=== PATIENT | male | born 1985 | race Asian ===

== ENCOUNTER 2019-04-22 16:09 | Inpatient (IN) | payer OTHER ==
--- NOTE | 2019-04-22 16:29 | PDOC ---
Attending Attestation - Resident Resident Name: Daya Valadez - HPI HPI: 04/22/19 17:26 Pt presents to the ED complaining of a two day history of generalized malaise, diffuse body aches and fevers. Patient is here in the ED from [facility] and has a history of urethral strictures for which he self dilates. Three days ago, patient had difficulty urinating and dilated himself. The next day, he began experiencing fevers and body aches, accompanied by dysuria. - Physicial Exam PE: 04/22/19 17:31 Agree with resident exam. Patient is alert and oriented and appears uncomfortable. CV: rrr tachycardic. RR: lungs CTA b/l. Abdomen: soft, non tender, non distended without guarding or rebound. + bilateral CVA tenderness. 04/22/19 18:12 - Critical Care Time Total Critical Care Time: 30 Critical Care Statement: The care of this patient involved high complexity decision making to prevent further life threatening deterioration of the patient 's condition and/or to evaluate & treat vital organ system(s) failure or risk of failure. - Medical Decision Making 04/22/19 18:15 Ptp resents to the ED complaining of fever and generalized body aches. Found to be febrile and hypotensive in the ED. Labs show elevated lactate, ARF and elevated bilirubin. wIll start broad spectrum antibiotics and admit to ICU for sepsis with multiorgan system failure. Will check CXR and CT abdomen pelvis without contrast to evaluate for urinary obstruction and biliary obstruction. Troponin is 0.3, likely secondary to demand. 04/22/19 18:24
[2019-04-22 16:40] VITALS: BMI 26.6
[2019-04-22] MEDS ORDERED: SODIUM CHLORIDE 2,381 ML IV ONE (16:43)
[2019-04-22] MEDS ORDERED: ONDANSETRON 4 MG/2 ML VIAL IVPB ONE (16:45)
[2019-04-22] MEDS ORDERED: ACETAMINOPHEN 1000 MG/100 ML VIAL (NON FORMULARY) IVPB ONE (16:45)
[2019-04-22] MEDS ORDERED: ONDANSETRON 4 MG/2 ML VIAL ONE (16:56)
[2019-04-22] MEDS ORDERED: ACETAMINOPHEN INJECTION 100 ML IVPB ONE (16:56)
[2019-04-22 17:31] LABS: VENOUS PC02 43.1 mmHg (38-52); VENOUS PH 7.35 (7.31-7.41)
[2019-04-22 17:32] LABS: BASO % 0.1 % (0-2.0); EOS % 0.1 % (0-4.5); HEMATOCRIT 42.3 % (35.4-49); LYMPH % 4.4 % (8-40); MCH 29.4 pg (25.7-33.7); MCHC 33.1 g/dl (32.0-35.9); MEAN PLT VOLUME 10.6 fl (7.5-11.1); MONO % 4.5 % (3.8-10.2); NEUT % 90.9 % (42.8-82.8); PLATELET COUNT 74 K/MM3 (134-434); RBC 4.75 M/mm3 (4.00-5.60); RDW 14.5 % (11.9-15.9); WHITE BLOOD COUNT 14.6 K/mm3 (4.0-10.0)
[2019-04-22 17:36] LABS: VENOUS PO2 < 49 mmHg (28-48)
[2019-04-22 17:39] LABS: HYALINE CASTS 3 /lpf (0-8); URINE APPEARANCE CLOUDY; URINE BACTERIA 4356.8 /hpf (NEGATIVE); URINE BILIRUBIN 1+ (NEGATIVE); URINE COLOR DK YELLOW; URINE GLUCOSE (UA) NEGATIVE (NEGATIVE); URINE KETONE NEGATIVE (NEGATIVE); URINE LEUK ESTERASE 2+ (NEGATIVE); URINE NITRITE NEGATIVE (NEGATIVE); URINE PROTEIN 1+ (NEGATIVE); URINE RBC 6 /hpf (0-4); URINE UROBILINOGEN 0.2 mg/dL (0.2-1.0); URINE WBC 42 /hpf (0-5)
[2019-04-22 17:49] LABS: INR 2.07 (0.83-1.09); PROTHROMBIN TIME (PATIENT) 24.6 SEC (9.7-13.0)
[2019-04-22 18:00] LABS: ALBUMIN 3.4 g/dl (3.4-5.0); BILIRUBIN,TOTAL 8.5 mg/dL (0.2-1); BLOOD UREA NITROGEN 52.3 mg/dL (7-18); CALCIUM 8.3 mg/dL (8.5-10.1); CREATININE 2.8 mg/dL (0.55-1.3); POTASSIUM 4.3 mmol/L (3.5-5.1); TOT PROT 6.7 g/dl (6.4-8.2)
[2019-04-22 18:07] LABS: YEAST POSITIVE (NEGATIVE)
[2019-04-22] MEDS ORDERED: CEFTRIAXONE 1 GM in DEXTROSE 5%-WATER - 100 ML IVPB ONE (18:08)
[2019-04-22] MEDS ORDERED: PIPERACILLIN/TAZOB 3.375 GM 3.375 GM in DEXTROSE 5%-WATER - 50 ML IVPB ONE (18:12)
[2019-04-22] MEDS ORDERED: SODIUM CHLORIDE 1,000 ML IV STA (18:12)
[2019-04-22] MEDS ORDERED: VANCOMYCIN 1 GM in D5W (PRE-DOCKED) 1,000 MG/250 ML IVPB ONE (18:12)
--- NOTE | 2019-04-22 18:16 | PDOC ---
History of Present Illness - General Chief Complaint: Weakness Stated Complaint: Blood Pressure Problem Time Seen by Provider: 04/22/19 16:25 History Source: Patient Exam Limitations: No Limitations - History of Present Illness Initial Comments: 04/22/19 18:15 33y M with PMH of Hepatitis B (not on treatment) urethral strictures (straight catheterizes when needed) presenting to ED for body aches, weakness. Patient states that Friday night he was taking a shower and felt weak. He had trouble urinating and dilated his urethra and developed hematuria which has lessened today. Patient states that yesterday he developed fever and chills, he took medications which he got from back home (azithromycin, paracetamol) which his doctor gave him for UTIs. Today patient was having generalized body aches which prompted him to go to urgent care today and was found to be hypotensive. Patient is endorsing generalized body and muscle aches and nausea. Denies abdominal pain, v/d, urinary symptoms. PMD: none PMH: see hpi PSH: none Meds: Allergies: nkda Social: occasional alcohol use Past History - Past Medical History Allergies/Adverse Reactions: Allergies Allergy/AdvReac Type Severity Reaction Status Date / Time No Known Allergies Allergy Verified 04/22/19 16:38 Home Medications: Ambulatory Orders Azithromycin [Zithromax] 500 mg PO ONCE 04/22/19 COPD: No Other medical history: urinary stricture - Psycho Social/Smoking Cessation Hx Smoking History: Never smoked Review of Systems - Review of Systems Constitutional: Yes: Chills, Fever, Malaise, Weakness HEENTM: No: Symptoms Reported Respiratory: No: Cough, Shortness of Breath Cardiac (ROS): No: Chest Pain, Lightheadedness, Palpitations, Syncope ABD/GI: Yes: Nausea. No: Constipated, Diarrhea, Rectal Bleeding, Vomiting, Abdominal cramping, Tarry Stools : Yes: See HPI, Hematuria. No: Burning, Dysuria, Flank Pain Musculoskeletal: Yes: Back Pain, Joint Pain, Muscle Pain, Neck Pain Integumentary: No: Erythema, Rash Neurological: No: Symptoms reported *Physical Exam - Vital Signs Last Vital Signs Temp Pulse Resp BP Pulse Ox 99.0 F 82 16 106/78 94 L 04/22/19 18:08 04/22/19 18:08 04/22/19 18:08 04/22/19 18:08 04/22/19 18:08 - Physical Exam General Appearance: Yes: Other (diaphoretic, ill appearing) HEENT: positive: EOMI, MILI, Scleral Icterus (R), Scleral Icterus (L), Other ( dry membranes) Neck: positive: Trachea midline, Supple. negative: Decreased range of motion, Lymphadenopathy (R), Lymphadenopathy (L), Rigidity Respiratory/Chest: positive: Lungs Clear, Normal Breath Sounds. negative: Crackles, Rales, Rhonchi, Stridor, Wheezing Cardiovascular: positive: S1, S2, Tachycardia. negative: Edema, JVD, Murmur Vascular Pulses: Carotid (R): 2+, Carotid (L): 2+, Dorsalis-Pedis (R): 2+, Doralis-Pedis (L): 2+ Gastrointestinal/Abdominal: positive: Normal Bowel Sounds, Soft. negative: Tender, Guarding, Rebound Male Genitalia: positive: other (urethral meatus is disrupted to the glans). negative: testicular tenderness, testicular mass Musculoskeletal: positive: Other (negative kernig, negative brudzinsky. + quadricep tenderness. Knee joint tenderness). negative: CVA Tenderness, Vertebral Tenderness Extremity: positive: Normal Capillary Refill. negative: Coldness, Cyanosis, Pedal Edema, Swelling, Erythema Integumentary: positive: Normal Color, Dry, Warm. negative: Erythema, Petechiae , Swelling, Ecchymosis Neurologic: positive: medical secretary receptionist II-XII NML intact, Fully Oriented, Alert, Normal Mood/ Affect, Normal Response, Motor Strength 5/5 Procedures - Central Line Central Line Lumen: triple Central Line Position: internal jugular (L) Anesthesia: 1% Lidocaine Amount of anesthesia (ccs): 3 Complications: none Post Central Line Insertion: sutured, good blood return, position confirmed w/ CXR Progress: 04/23/19 00:02 triple lumen central line placed using sterile technique and ultrasound guidance. landmarks identified with ultrasound. wheal formed with lidocaine with no blood with pull back. needle inserted with venous blood return. wire introduced, unable to advance. wire was pulled back, needle placement confirmed with ultrasound, angle dropped , wire inserted with no resistance. dilator introduced. catheter was then introduced and hubbed. sutured in place. confirmed by xray. . supervised by Dr. Ali ED Treatment Course - LABORATORY CBC & Chemistry Diagram: 04/22/19 17:00 04/22/19 17:00 - ADDITIONAL ORDERS Additional order review: Laboratory Results 04/22/19 04/22/19 04/22/19 17:27 17:00 17:00 PT with INR INR PTT (Actin FS) VBG pH 7.35 POC VBG pCO2 43.1 POC VBG pO2 < 49 H VBG HCO3 23.3 VBG O2 Sat (Randi) 38.4 L VBG Base Excess -1.8 Sodium Potassium Chloride Carbon Dioxide Anion Gap BUN Creatinine Est GFR (CKD-EPI)AfAm Est GFR (CKD-EPI)NonAf Random Glucose Lactic Acid 2.9 H* Calcium Total Bilirubin AST ALT Alkaline Phosphatase Creatine Kinase Troponin I Total Protein Albumin Urine Color Dk yellow Urine Appearance Cloudy Urine pH 5.0 Ur Specific [place] 1.013 Urine Protein 1+ H Urine Glucose (UA) Negative Urine Ketones Negative Urine Blood 2+ H Urine Nitrite Negative Urine Bilirubin 1+ H Urine Urobilinogen 0.2 Ur Leukocyte Esterase 2+ H Urine WBC (Auto) 42 Urine RBC (Auto) 6 Urine Casts (Auto) 3 U Epithel Cells (Auto) 1.0 Urine Bacteria (Auto) 4356.8 Urine Yeast (Auto) Positive 04/22/19 04/22/19 04/22/19 17:00 17:00 17:00 PT with INR 24.60 H INR 2.07 H PTT (Actin FS) 43.0 H VBG pH POC VBG pCO2 POC VBG pO2 VBG HCO3 VBG O2 Sat (Randi) VBG Base Excess Sodium 132 L Potassium 4.3 Chloride 100 Carbon Dioxide 23 Anion Gap 9 BUN 52.3 H Creatinine 2.8 H Est GFR (CKD-EPI)AfAm 32.40 Est GFR (CKD-EPI)NonAf 27.96 Random Glucose 110 H Lactic Acid Calcium 8.3 L Total Bilirubin 8.5 H AST 73 H ALT 77 H Alkaline Phosphatase 78 Creatine Kinase 220 Troponin I 0.30 H Total Protein 6.7 Albumin 3.4 Urine Color Urine Appearance Urine pH Ur Specific [place] Urine Protein Urine Glucose (UA) Urine Ketones Urine Blood Urine Nitrite Urine Bilirubin Urine Urobilinogen Ur Leukocyte Esterase Urine WBC (Auto) Urine RBC (Auto) Urine Casts (Auto) U Epithel Cells (Auto) Urine Bacteria (Auto) Urine Yeast (Auto) 04/22/19 17:00 RBC 4.75 MCV 89.0 MCHC 33.1 RDW 14.5 MPV 10.6 Neutrophils % 90.9 H Lymphocytes % 4.4 L Monocytes % 4.5 Eosinophils % 0.1 Basophils % 0.1 - RADIOLOGY Radiology Studies Ordered: Category Date Time Status ABDOMEN & PELVIS CT W/O CONTR [CT] Stat CT Scan 04/22/19 18:12 Ordered CHEST X-RAY PORTABLE* [RAD] Stat Radiology 04/22/19 16:43 Taken - Medications Given in the ED: ED Medications Discontinued Medications Generic Name Dose Route Start Last Admin Trade Name Freq PRN Reason Stop Dose Admin Acetaminophen 1,000 mg 04/22/19 16:45 04/22/19 17:07 Ofirmev Injection - IVPB 04/22/19 16:46 1,000 mg ONCE ONE Administration Ondansetron HCl 4 mg 04/22/19 16:45 04/22/19 17:07 Zofran Injection IVPB 04/22/19 16:46 4 mg ONCE ONE Administration Medical Decision Making - Medical Decision Making 04/23/19 00:02 33y M with PMH of urethral strictures, Hepatitis B presenting to ED from urgent care for hypotension. pt endoress feeling weak 2d ago, febrile yesterday and generalized body aches today. vitals: hypotensive, tahcycaric febrile ddx includes but not limited to sepsis v. severe sepsis v. septic shock (uti, pyelo, pna). low suspicion for meningitis/encephalitis. Low suspicion for malaria, dengue or other mosquito borne illness given pt has been healthy until now. low suspicion for TB (no respiratory symptoms). sepsis w/u. 1L NS by EMS, will order 30mg/kg fluids. ofirmev. pt improving bp after fluids however still hypotensive, 3rd L hanging. stating he feels ok. rigors noted in patient, also diaphoretic. provided warm blankets. labs significant for leukocytosis with L shift, elevated coags, elevated LFTs, Cr 2.8, elevated trop likely 2/2 demand, Tbili elevated. Lactic acid over 2. elevated lfts could be due to shock v. underlying liver disease. howver given elevated trop and Cr (uknown baseline) in setting of hypotension, abnormalities can be explained by septic shock. ekg: sinus tachycardia. J point elevation in lead 1, aVL. no reciprocal depressions, normal intervals. CXR does not show infiltrates CT scan ordered. UA positive for infection; likely source due to instrumentation. -Francoise Solomon 04/23/19 00:46 CT scan shows hepatic surface irregularity could be due to cirrhosis. small R heaptic lobe calcification. pt remains hypotensive. Central line placed. see procedure note. Lact 5. LR ordered by ICU, will repeat lact. Line confirmed by xray, started pressors (levophed 5) accepted by ICU, admitted to hospitalist. RR in the 30s, patient states he cortes not feel short of breath and does not have chest pain. no arrhythmias signifying catheter in R [facility]. Discharge - Discharge Information Problems reviewed: Yes Clinical Impression/Diagnosis: JEFF (acute kidney injury) Sepsis Qualifiers: Sepsis type: sepsis due to unspecified organism Sepsis acute organ dysfunction status: with acute organ dysfunction Severe sepsis acute organ dysfunction type : acute renal failure Acute renal failure type: unspecified Severe sepsis shock status: with septic shock Qualified Code(s): A41.9 - Sepsis, unspecified organism; R65.21 - Severe sepsis with septic shock; N17.9 - Acute kidney failure , unspecified UTI (urinary tract infection) Qualifiers: Urinary tract infection type: site unspecified Hematuria presence: with hematuria Qualified Code(s): N39.0 - Urinary tract infection, site not specified ; R31.9 - Hematuria, unspecified - Follow up/Referral - Patient Discharge Instructions - Post Discharge Activity
[2019-04-22] MEDS ORDERED: CEFTRIAXONE 1 GM/50 ML BAG ONE (18:19)
[2019-04-22] MEDS ORDERED: PIPERACILLIN/TAZOB 3.375 GM 3.375 GM/50 ML BAG IVPB ONE (18:44)
[2019-04-22] MEDS ORDERED: VANCOMYCIN 1 GRAM (PRE-DOCKED) 1,000 MG/250 ML BAG IVPB ONE (18:44)
--- NOTE | 2019-04-22 19:22 | PN ---
Teaching Attending Note Name of Resident: Kenton Grullon ATTENDING PHYSICIAN STATEMENT I saw and evaluated the patient. I reviewed the resident's note and discussed the case with the resident. I agree with the resident's findings and plan as documented. SUBJECTIVE: Patient is a 33 year old man with PMH of urethral strictures (self dilates)and chronic hepatitis B infection presenting to ER for body aches, weakness. Patient states that Friday night he was taking a shower and felt weak. He had trouble urinating and dilated his urethra and developed hematuria which has lessened today. Patient states that yesterday he developed fever and chills, he took medications which he got from back home in [facility] (azithromycin, paracetamol) which his doctor gave him for UTIs. Today patient was having generalized body aches which prompted him to go to urgent care today and was found to be hypotensive. Patient is has generalized body and muscle aches and nausea. Denies abdominal pain, vomiting, diarrhea, or SOB. Does not smoke, abuse alcohol or use illicit drugs. No obvious sick contacts. Just arrived from [facility] a few days ago. OBJECTIVE: Alert Vital Signs Period Temp Pulse Resp BP Sys/Paez Pulse Ox Last 24 Hr 98.7 F-103.4 F 82-102 16-18 82-106/49-78 94-100 HEENT: No Jaundice, eye redness or discharge, PERRLA, EOMI. Normocephalic, atraumatic. External ears are normal and hearing is grossly intact. No nasal discharge. Neck: Supple, nontender. No palpable adenopathy or thyromegaly. No JVD Chest: Good effort. Clear to auscultation and percussion. Heart: Regular. No S3, rub or murmur Abdomen: Not distended, soft, RUQ tender and bilateral CVAT; suprapubic tenderness; no HSM. No rebound or guarding. Normal bowel sounds. Ext: Peripheral pulses intact. No leg edema. Skin: Warm and dry. No petechiae, rash or ecchymosis. Neuro: Alert. Oriented x3. CN 2-12 grossly intact. Sensation grossly intact in all four extremities and DTR are symmetric. Psych: Appropriate mood and affect. Good insight. Abnormal Lab Results 04/22/19 04/22/19 04/22/19 17:00 17:00 17:00 WBC 14.6 H Plt Count 74 L Absolute Neuts (auto) 13.3 H Neutrophils % 90.9 H Lymphocytes % 4.4 L PT with INR 24.60 H INR 2.07 H PTT (Actin FS) 43.0 H POC VBG pO2 VBG O2 Sat (Randi) Sodium 132 L BUN 52.3 H Creatinine 2.8 H Random Glucose 110 H Lactic Acid Calcium 8.3 L Total Bilirubin 8.5 H AST 73 H ALT 77 H CK-MB (CK-2) Troponin I Urine Protein Urine Blood Urine Bilirubin Ur Leukocyte Esterase 04/22/19 04/22/19 04/22/19 17:00 17:00 17:00 WBC Plt Count Absolute Neuts (auto) Neutrophils % Lymphocytes % PT with INR INR PTT (Actin FS) POC VBG pO2 < 49 H VBG O2 Sat (Randi) 38.4 L Sodium BUN Creatinine Random Glucose Lactic Acid 2.9 H* Calcium Total Bilirubin AST ALT CK-MB (CK-2) 4.3 H Troponin I 0.30 H Urine Protein Urine Blood Urine Bilirubin Ur Leukocyte Esterase 04/22/19 17:27 WBC Plt Count Absolute Neuts (auto) Neutrophils % Lymphocytes % PT with INR INR PTT (Actin FS) POC VBG pO2 VBG O2 Sat (Randi) Sodium BUN Creatinine Random Glucose Lactic Acid Calcium Total Bilirubin AST ALT CK-MB (CK-2) Troponin I Urine Protein 1+ H Urine Blood 2+ H Urine Bilirubin 1+ H Ur Leukocyte Esterase 2+ H ASSESSMENT AND PLAN: 1. Septic shock due to Pyelonephritis - Sepsis workup done and patient being treated with IV Zosyn and Linezolid. Will use levophed for pressor support, continue IV NS and trend lactic acid in the ICU. Add Diflucan IV in view yeast in the urine. CT abdomen/pelvis shows cirrhosis, enlarged spleen and distended urinary bladder. Elevated LFTs and low platelets may signal chronic liver disease. Will get RUQ sonogram in view of bilirubin of 8.5. Will get hepatitis serology, trend LFTs, get NH3 level and send test for tick-borne illnesses ( babesiosis, malaria, etc) as well as infections like Leptospirosis that cause hepato-renal injury. No acute abnormality on CXR. Elevated troponin may be due to demand ischemia, but will trend troponin to rule out ACS. EKG shows NSR with LAE and no significant ST-T wave changes. Get ECHO. Will continue comprehensive care for all of patients comorbid conditions. Consult Urology, GI and ID 2. CKD/JEFF? - Likely related to urinary outlet obstruction. Will consult nephrology and avoid nephrotoxic agents such as NSAIDS, aminoglycosides, contrast dyes and certain Alternative medicine products. 3. DVT prophylaxis - Heparin 5000u sq tid. 4. Advance directives - Full code
[2019-04-22] MEDS ORDERED: LACTATED RINGERS SOLUTION 1,000 ML/1,000 ML INFUS.BAG IV SCH (21:00)
[2019-04-22] MEDS ORDERED: NOREPINEPHRINE BITARTRATE 4,000 MCG in DEXTROSE 5%-WATER - 496 ML IV SCH (21:00)
--- NOTE | 2019-04-22 21:22 | CONSULT ---
Consultation: REQUESTING PROVIDER: Dr. Valadez CONSULT REQUEST: We have been asked to medically evaluate this patient for fluid resistant hypotension. HISTORY OF PRESENT ILLNESS: 33 y/o M with PMH ?Chronic Hep B who presented to the ED for hematuria REVIEW OF SYSTEMS: CONSTITUTIONAL: Absent: fever, chills, diaphoresis, generalized weakness, malaise, loss of appetite, weight change HEENT: Absent: rhinorrhea, nasal congestion, throat pain, throat swelling, difficulty swallowing, mouth swelling, ear pain, eye pain, visual changes CARDIOVASCULAR: Absent: chest pain, syncope, palpitations, irregular heart rate, lightheadedness , peripheral edema RESPIRATORY: Absent: cough, shortness of breath, dyspnea with exertion, orthopnea, wheezing, stridor, hemoptysis GASTROINTESTINAL: Absent: abdominal pain, abdominal distension, nausea, vomiting, diarrhea, constipation, melena, hematochezia GENITOURINARY: Absent: dysuria, frequency, urgency, hesitancy, hematuria, flank pain, genital pain MUSCULOSKELETAL: Absent: myalgia, arthralgia, joint swelling, back pain, neck pain SKIN: Absent: rash, itching, pallor HEMATOLOGIC/IMMUNOLOGIC: Absent: easy bleeding, easy bruising, lymphadenopathy, frequent infections ENDOCRINE: Absent: unexplained weight gain, unexplained weight loss, heat intolerance, cold intolerance NEUROLOGIC: Absent: headache, focal weakness or paresthesias, dizziness, unsteady gait, seizure, mental status changes, bladder or bowel incontinence PSYCHIATRIC: Absent: anxiety, depression, suicidal or homicidal ideation, hallucinations. PHYSICAL EXAMINATION Vital Signs - 24 hr 04/22/19 04/22/19 04/22/19 16:38 18:08 18:27 Temperature 98.7 F 99.0 F 103.4 F H Pulse Rate 102 H Pulse Rate [ 82 Apical] Respiratory 18 16 Rate Blood Pressure 82/49 L Blood Pressure 106/78 [Right Arm] O2 Sat by Pulse 100 94 L Oximetry (%) 04/22/19 20:52 Temperature Pulse Rate Pulse Rate [ 105 H Apical] Respiratory 36 H Rate Blood Pressure Blood Pressure 75/40 L [Right Arm] O2 Sat by Pulse 97 Oximetry (%) GENERAL: Awake, alert, and fully oriented, in no acute distress. HEAD: Normal with no signs of trauma. EYES: Pupils equal, round and reactive to light, extraocular movements intact, sclera anicteric, conjunctiva clear. No lid lag. EARS, NOSE, THROAT: Ears normal, nares patent, oropharynx clear without exudates. Moist mucous membranes. NECK: Normal range of motion, supple without lymphadenopathy, JVD, or masses. LUNGS: Breath sounds equal, clear to auscultation bilaterally. No wheezes, and no crackles. No accessory muscle use. HEART: Regular rate and rhythm, normal S1 and S2 without murmur, rub or gallop. ABDOMEN: Soft, nontender, not distended, normoactive bowel sounds, no guarding, no rebound, no masses. No hepatomegaly or splenomegaly. MUSCULOSKELETAL: Normal range of motion at all joints. No bony deformities or tenderness. No CVA tenderness. UPPER EXTREMITIES: 2+ pulses, warm, well-perfused. No cyanosis. No clubbing. Cap refill <2 seconds. No peripheral edema. LOWER EXTREMITIES: 2+ pulses, warm, well-perfused. No calf tenderness. No peripheral edema. NEUROLOGICAL: Cranial nerves II-XII intact. Normal speech. Normal gait. PSYCHIATRIC: Cooperative. Good eye contact. Appropriate mood and affect. SKIN: Warm, dry, normal turgor, no rashes or lesions noted. Laboratory Results - last 24 hr 04/22/19 04/22/19 04/22/19 17:00 17:00 17:00 WBC 14.6 H RBC 4.75 Hgb 14.0 Hct 42.3 MCV 89.0 MCH 29.4 MCHC 33.1 RDW 14.5 Plt Count 74 L MPV 10.6 Absolute Neuts (auto) 13.3 H Neutrophils % 90.9 H Lymphocytes % 4.4 L Monocytes % 4.5 Eosinophils % 0.1 Basophils % 0.1 Nucleated RBC % 0 PT with INR 24.60 H INR 2.07 H PTT (Actin FS) 43.0 H VBG pH POC VBG pCO2 POC VBG pO2 VBG HCO3 VBG O2 Sat (Randi) VBG Base Excess Sodium 132 L Potassium 4.3 Chloride 100 Carbon Dioxide 23 Anion Gap 9 BUN 52.3 H Creatinine 2.8 H Est GFR (CKD-EPI)AfAm 32.40 Est GFR (CKD-EPI)NonAf 27.96 Random Glucose 110 H Lactic Acid Calcium 8.3 L Total Bilirubin 8.5 H AST 73 H ALT 77 H Alkaline Phosphatase 78 Creatine Kinase Creatine Kinase Index CK-MB (CK-2) Troponin I Total Protein 6.7 Albumin 3.4 Urine Color Urine Appearance Urine pH Ur Specific [place] Urine Protein Urine Glucose (UA) Urine Ketones Urine Blood Urine Nitrite Urine Bilirubin Urine Urobilinogen Ur Leukocyte Esterase Urine WBC (Auto) Urine RBC (Auto) Urine Casts (Auto) U Epithel Cells (Auto) Urine Bacteria (Auto) Urine Yeast (Auto) 04/22/19 04/22/19 04/22/19 17:00 17:00 17:00 WBC RBC Hgb Hct MCV MCH MCHC RDW Plt Count MPV Absolute Neuts (auto) Neutrophils % Lymphocytes % Monocytes % Eosinophils % Basophils % Nucleated RBC % PT with INR INR PTT (Actin FS) VBG pH 7.35 POC VBG pCO2 43.1 POC VBG pO2 < 49 H VBG HCO3 23.3 VBG O2 Sat (Randi) 38.4 L VBG Base Excess -1.8 Sodium Potassium Chloride Carbon Dioxide Anion Gap BUN Creatinine Est GFR (CKD-EPI)AfAm Est GFR (CKD-EPI)NonAf Random Glucose Lactic Acid 2.9 H* Calcium Total Bilirubin AST ALT Alkaline Phosphatase Creatine Kinase 220 Creatine Kinase Index 1.9 CK-MB (CK-2) 4.3 H Troponin I 0.30 H Total Protein Albumin Urine Color Urine Appearance Urine pH Ur Specific [place] Urine Protein Urine Glucose (UA) Urine Ketones Urine Blood Urine Nitrite Urine Bilirubin Urine Urobilinogen Ur Leukocyte Esterase Urine WBC (Auto) Urine RBC (Auto) Urine Casts (Auto) U Epithel Cells (Auto) Urine Bacteria (Auto) Urine Yeast (Auto) 04/22/19 17:27 WBC RBC Hgb Hct MCV MCH MCHC RDW Plt Count MPV Absolute Neuts (auto) Neutrophils % Lymphocytes % Monocytes % Eosinophils % Basophils % Nucleated RBC % PT with INR INR PTT (Actin FS) VBG pH POC VBG pCO2 POC VBG pO2 VBG HCO3 VBG O2 Sat (Randi) VBG Base Excess Sodium Potassium Chloride Carbon Dioxide Anion Gap BUN Creatinine Est GFR (CKD-EPI)AfAm Est GFR (CKD-EPI)NonAf Random Glucose Lactic Acid Calcium Total Bilirubin AST ALT Alkaline Phosphatase Creatine Kinase Creatine Kinase Index CK-MB (CK-2) Troponin I Total Protein Albumin Urine Color Dk yellow Urine Appearance Cloudy Urine pH 5.0 Ur Specific [place] 1.013 Urine Protein 1+ H Urine Glucose (UA) Negative Urine Ketones Negative Urine Blood 2+ H Urine Nitrite Negative Urine Bilirubin 1+ H Urine Urobilinogen 0.2 Ur Leukocyte Esterase 2+ H Urine WBC (Auto) 42 Urine RBC (Auto) 6 Urine Casts (Auto) 3 U Epithel Cells (Auto) 1.0 Urine Bacteria (Auto) 4356.8 Urine Yeast (Auto) Positive Active Medications Generic Name Dose Route Start Last Admin Trade Name Freq PRN Reason Stop Dose Admin Chlorhexidine Gluconate 1 applic 04/22/19 22:00 Hibiclens For Decolonization - TP HS JOHNY Lactated Ringer's 1,000 ml in 1,000 mls @ 100 mls/hr 04/22/19 21:00 Lactated Ringers Solution IV ASDIR JOHNY Piperacillin Sod/Tazobactam 50 mls @ 100 mls/hr 04/23/19 02:00 Sod 3.375 gm/ Dextrose IVPB Q8H-IV JOHNY Protocol Norepinephrine Bitartrate 4, 500 mls @ 37.5 mls/hr 04/22/19 21:00 000 mcg/ Dextrose IV TITR JOHNY Protocol 5 MCG/MIN Piperacillin Sod/Tazobactam 50 mls @ 100 mls/hr 04/23/19 02:00 Sod 3.375 gm/ Dextrose IVPB 04/24/19 01:59 Q8H-IV JOHNY Protocol Mupirocin 1 applic 04/22/19 22:00 Bactroban Ointment (For Decolonization) - NS 04/27/19 21:59 BID JOHNY ASSESSMENT/PLAN: Dispo: We will continue to follow the patient. Thank you for this consultative opportunity. ATTENDING PHYSICIAN STATEMENT I saw and evaluated the patient. I reviewed the resident's note and discussed the case with the resident. I agree with the resident's findings and plan as documented. SUBJECTIVE: OBJECTIVE: ASSESSMENT AND PLAN:
--- NOTE | 2019-04-22 21:43 | CONSULT ---
Consultation: REQUESTING PROVIDER: Dr. Valadez CONSULT REQUEST: We have been asked to medically evaluate this patient for fluid resistant hypotension. HISTORY OF PRESENT ILLNESS: 33 y/o M from [facility] with PMH Chronic Hep B, urethral strictures who presented to the ED for three day hx hematuria and chills. Per pt, on Friday, he noticed that he had increased myalgias, weakness, and chills. States that he was self- dilating as he has urethral strictures and noticed on Friday that he was having dysuria and hematuria. He progressively has felt weaker, and developed subject fever, nausea without emesis, and rigors. Took medications from [facility] azithromycin and paracetamol for his sx, without relief. Went to urgent care for further evaluation and was found to be hypotensive while there. Was brought to [facility] via EMS and received 1L en route. In ED, pt found to be febrile upon arrival to 103.4F, w/ initial BP ~80/40. After starting 3rd liter of IV NS, pt still hypotensive with MAP in low 60's. Line placed by ED and pt started on levophed gtt via L IJ. During this time, denies known liver dz, drug use, new rashes, constitutional sx, JOSEPH, SOB, chest pain or pressure or changes in bowel function. ICU consulted for fluid-resistant hypotension. Pt moved from [facility] February 24. Studying theology. No sick contacts while in [facility], no pets. No recent infections. Denies frequent alcohol use; drinks wine seldom. Endorses chronic hep B. Has never been told that he had problems with his liver. PMH: as above PsxH: denies meds: denies allergies: none FH: parents - DM SH: Is studying theology. Denies cigarettes or rec drug use. Drinks wine seldom REVIEW OF SYSTEMS: +chills +nausea +myalgias PHYSICAL EXAMINATION Vital Signs - 24 hr 04/22/19 04/22/19 04/22/19 16:38 18:08 18:27 Temperature 98.7 F 99.0 F 103.4 F H Pulse Rate 102 H Pulse Rate [ 82 Apical] Respiratory 18 16 Rate Blood Pressure 82/49 L Blood Pressure 106/78 [Right Arm] O2 Sat by Pulse 100 94 L Oximetry (%) GENERAL: Awake, lethargic. diaphoretic HEAD: Normal with no signs of trauma. EYES: Pupils equal, round and reactive to light, extraocular movements intact, sclera anicteric, conjunctiva clear. No lid lag. EARS, NOSE, THROAT: Ears normal, nares patent, oropharynx clear without exudates. Moist mucous membranes. NECK: Normal range of motion, supple without lymphadenopathy LUNGS: Breath sounds equal, clear to auscultation bilaterally. No wheezes, and no crackles. No accessory muscle use. HEART: +tachycardic rate and rhythm, normal S1 and S2 without murmur, rub or gallop. ABDOMEN: Soft, distended, normoactive bowel sounds LOWER EXTREMITIES: 2+ pt pulses, warm, well-perfused. No calf tenderness. No peripheral edema. NEUROLOGICAL: Cranial nerves II-XII intact. PSYCHIATRIC: Cooperative. Laboratory Results 04/22/19 04/22/19 04/22/19 17:00 17:00 17:00 WBC 14.6 H Hgb 14.0 Hct 42.3 Plt Count 74 L PT with INR 24.60 H INR 2.07 H PTT (Actin FS) 43.0 H Sodium 132 L Potassium 4.3 Chloride 100 Anion Gap 9 BUN 52.3 H Creatinine 2.8 H Lactic Acid AST 73 H ALT 77 H Troponin I Urine Bilirubin Urine WBC (Auto) Urine Bacteria (Auto) 04/22/19 04/22/19 04/22/19 17:00 17:00 17:27 Creatinine Lactic Acid 2.9 H* AST ALT Troponin I 0.30 H Urine Protein 1+ H Urine Blood 2+ H Urine Nitrite Negative Urine Bilirubin 1+ H Urine Urobilinogen 0.2 Ur Leukocyte Esterase 2+ H Urine WBC (Auto) 42 Urine Bacteria (Auto) 4356.8 EKG: +sinus tach, 100bpm, qtc [address]-t wave changes CTAP w/o contrast: mild hepatic surface irregularity which could be on the basis of cirrhosis, small calcification is seen in the R inferior hepatic lobe possibly representing a granuloma, spleen mildly enlarged 14cm in length. urinary bladder mildly overdistended w/ 440ml distension, urinary retention. Chest - L mild opacity representing atelectasis vs. small infiltrate ASSESSMENT/PLAN: 33 y/o M from [facility] with PMH Chronic Hep B, urethral strictures who presented to the ED for three day hx hematuria and chills. Per pt, on Friday, he noticed that he had increased myalgias, weakness, and chills. ICU consulted for fluid- resistant hypotension. #Neuro -AAO x 3, neuro intact #ID R/o septic shock -may be 2/2 UTI or pyelo as pt with increased urinary stasis, retention. +UA. will r/o alternate etiologies such as PNA, endemic conditions to [facility] such as dengue fever, leptospirosis -s/p vanc, zosyn in ED. fluconazole x 1 d/t UA + yeast -f/u blood cx, ucx, sputum cx -f/u lactic. initial 2.9 > 5.0 . will bolus additional 1L -requiring pressor support. started on levophed gtt . MAP > 65 -trend CVP. give IVF accordingly -c/w zosyn 3.375 g IVPB q8h. renally dosed -c/w IV LR 125 cc/hr -ID consult: Dr. Peterson -Uro consult: Dr. Santana. #GI Hyperbilirubinemia -will fractionate to determine direct, indirect bili -f/u RUQ sono . determine whether stone, CBD dilation -GI: Dr. Garza Transaminitis -may be 2/2 hypotension -also w/ hx of ?chronic Hep B -f/u Hep panel, HIV Thrombocytopenia -possible 2/2 cirrhosis. also w/ splenomegaly likely platelet sequestration -f/u hep C, HIV testing -c/t trend -avoid chemical PPX for now Cirrhosis -as young, will check for A1AT, autoimmune - anti-smooth m Ab, utox denies significant alcohol use -f/u INR ?Hepatic granuloma -seen on CTAP. may be 2/2 sarcoid, autoimmune, parasitic infection, Tb -f/u anti-smooth m Ab, AFB #Cardio Tropinemia possible 2/2 demand -initial trop 0.30, c/t trend -f/u ECHO -Cardio consult: Dr. Martin #Renal JEFF vs. JEFF on CKD -may have renal hypoperfusion 2/2 cirrhosis -f/u renal, bladder sono -c/w IVF #Lines/tubes -L IJ placed (04/22) #F/E/N IV LR 125 cc/hr continue to follow lytes NPO, advance diet as tolerates #PPX DVT: SCD's. w/ thrombocytopenia #Dispo admit to ICU Dispo: We will continue to follow the patient. Thank you for this consultative opportunity. Visit type - Emergency Visit Emergency Visit: Yes ED Registration Date: 04/22/19 Care time: The patient presented to the Emergency Department on the above date and was hospitalized for further evaluation of their emergent condition. - New Patient This patient is new to me today: Yes Date on this admission: 04/23/19 - Critical Care Critical Care patient: Yes Total Critical Care Time (in minutes): 42 Critical Care Statement: The care of this patient involved high complexity decision making to prevent further life threatening deterioration of the patient 's condition and/or to evaluate & treat vital organ system(s) failure or risk of failure.
[2019-04-22] MEDS ORDERED: MUPIROCIN 2% TOPICAL OINTMENT FOR DECOLONIZATION NS SCH (22:00)
[2019-04-22] MEDS ORDERED: CHLORHEXIDINE GLUCONATE 4% CLEANSER FOR DECOLONIZATION TP SCH (22:00)
[2019-04-22] MEDS ORDERED: LACTATED RINGERS SOLUTION 1,000 ML/1,000 ML INFUS.BAG IV STA (22:54)
[2019-04-23 00:39] LABS: BILIRUBIN,DIRECT 5.4 mg/dL (0.0-0.2)
[2019-04-23] MEDS ORDERED: SODIUM CHLORIDE 500 ML IV STA (00:57)
[2019-04-23] MEDS ORDERED: MORPHINE SULFATE 2 MG/ML VIAL ONE (00:58)
[2019-04-23] MEDS ORDERED: PIPERACILLIN/TAZOBACTAM 3.375 GM VIAL IVPB ONE ×2 (00:59→09:26)
[2019-04-23] MEDS ORDERED: DEXTROSE 5%-WATER - 50 ML IVPB ONE ×2 (00:59→09:26)
[2019-04-23] MEDS: PIPERACILLIN/TAZOB 3.375 GM 3.375 GM in DEXTROSE 5%-WATER - 50 ML IVPB SCH ×2 (01:02→09:56)
[2019-04-23] MEDS ORDERED: MORPHINE SULFATE 2 MG/ML VIAL IVPUSH ONE (01:03)
[2019-04-23] MEDS ORDERED: MELATONIN 5 MG TABLETS PO PRN (01:05)
[2019-04-23] MEDS: LACTATED RINGERS SOLUTION 1,000 ML/1,000 ML INFUS.BAG IV SCH ×2 (01:15→07:53)
[2019-04-23 01:23] LABS: BILIRUBIN,DIRECT 5.9 mg/dL (0.0-0.2)
--- NOTE | 2019-04-23 01:37 | HP ---
CHIEF COMPLAINT: PCP: none HISTORY OF PRESENT ILLNESS: 33 y/o/m from [facility] with PMHx of urethral stricture and Hep B here for hematuria , fever, and body aches. Patient was diagnosed with urethral strictures 5 years ago and has been hospitalized twice in [facility] and [facility] and was eventually told by his doctor that he can dilate himself at home as needed. He states that he re -uses his dilator tube for about a month but tries to keep it clean by washing it with hot water and he always cleans his hands before dilating. On Friday he had some trouble urinating so he dilated himself but had some hematuria which has not completely resolved. On Friday he started to have chills and a fever. Since then he has had increased diffuse body aches. He took four doses of azithromycin at home which he had received from his doctor in [facility]. He has also been taking acetominophen for pain. Today he went to an urgent care and was told to come here due to hypotension. He states he has a history of chronic Hep B which has not been treated. He also complains of some SOB intermittently. He denies any chest pain, cough, constipation. 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 ER course was notable for: (1) patient hypotensive, central line placed (2) Vanc and IVF started in ED Recent Travel: recently moved from [facility] PAST MEDICAL HISTORY: urethral strictures, untreated Hep B PAST SURGICAL HISTORY: Social History: Smoking: denies Alcohol: socially Drugs: denies Allergies No Known Allergies Allergy (Verified 04/22/19 16:38) HOME MEDICATIONS: Home Medications Medication Instructions Recorded Azithromycin [Zithromax] 500 mg PO ONCE 04/22/19 REVIEW OF SYSTEMS Constitutional: chills, fever HEENT: cough, denies sore throat, changes in vision Cardio: chest pain with cough, denies palpitations, lightheadedness Resp: SOB, wheezing GI: nausea. denies vomiting, diarrhea, constipation MSK: left shoulder pain. denies neck pain, back pain SKIN: denies rashes Neuro: headache denies loss of consciousness, numbness, tingling, weakness PHYSICAL EXAMINATION Vital Signs - 24 hr 04/22/19 04/22/19 04/22/19 16:38 18:08 18:27 Temperature 98.7 F 99.0 F 103.4 F H Pulse Rate 102 H Pulse Rate [ 82 Apical] Respiratory 18 16 Rate Blood Pressure 82/49 L Blood Pressure 106/78 [Right Arm] O2 Sat by Pulse 100 94 L Oximetry (%) 04/22/19 04/22/19 04/22/19 20:52 21:36 21:59 Temperature Pulse Rate 105 H Pulse Rate [ 105 H 115 H Apical] Respiratory 36 H 38 H Rate Blood Pressure 78/47 L Blood Pressure 75/40 L 80/52 L [Right Arm] O2 Sat by Pulse 97 96 Oximetry (%) 04/22/19 04/22/19 04/23/19 22:57 23:43 00:00 Temperature Pulse Rate 112 H 111 H Pulse Rate [ 120 H Apical] Respiratory 38 H 37 H Rate Blood Pressure 83/45 L 81/49 L Blood Pressure 94/41 L [Right Arm] O2 Sat by Pulse Oximetry (%) 04/23/19 04/23/19 00:21 00:32 Temperature Pulse Rate 116 H 113 H Pulse Rate [ Apical] Respiratory Rate Blood Pressure 81/49 L 77/44 L Blood Pressure [Right Arm] O2 Sat by Pulse Oximetry (%) GENERAL: moderate distress. Awake, alert, and fully oriented HEAD: NC/AT EYES: PERRL, EOMI, sclera anicteric EARS, NOSE, THROAT: dry mucous membranes. nares patent, oropharynx clear without exudates NECK: Right side central line in place. negative brudzinski sign, Normal range of motion, supple without lymphadenopathy, JVD, or masses. LUNGS: Breath sounds equal, clear to auscultation bilaterally. No wheezes, and no crackles. No accessory muscle use. HEART: Tachycardic. normal S1 and S2 without murmur, rub or gallop. ABDOMEN: RUQ and RLQ moderate tenderness to palpation. Soft, non-distended, normoactive bowel sounds, no guarding, no rebound, no masses. No hepatomegaly or splenomegaly. MUSCULOSKELETAL: No bony deformities or tenderness. No CVA tenderness. UPPER EXTREMITIES: 2+ pulses, warm, well-perfused. No cyanosis. No clubbing. No peripheral edema. LOWER EXTREMITIES: 2+ pulses, warm, well-perfused. No calf tenderness. No peripheral edema. NEUROLOGICAL: Cranial nerves II-XII intact. Normal speech. 5/5 strength upper and lower extremities. PSYCHIATRIC: Cooperative. Good eye contact. Appropriate mood and affect. SKIN: Warm, dry, normal turgor, no rashes or lesions noted, normal capillary refill. Laboratory Results - last 24 hr 04/22/19 04/22/19 04/22/19 17:00 17:00 17:00 WBC 14.6 H RBC 4.75 Hgb 14.0 Hct 42.3 MCV 89.0 MCH 29.4 MCHC 33.1 RDW 14.5 Plt Count 74 L MPV 10.6 Absolute Neuts (auto) 13.3 H Neutrophils % 90.9 H Lymphocytes % 4.4 L Monocytes % 4.5 Eosinophils % 0.1 Basophils % 0.1 Nucleated RBC % 0 PT with INR 24.60 H INR 2.07 H PTT (Actin FS) 43.0 H VBG pH POC VBG pCO2 POC VBG pO2 VBG HCO3 VBG O2 Sat (Randi) VBG Base Excess Sodium 132 L Potassium 4.3 Chloride 100 Carbon Dioxide 23 Anion Gap 9 BUN 52.3 H Creatinine 2.8 H Est GFR (CKD-EPI)AfAm 32.40 Est GFR (CKD-EPI)NonAf 27.96 Random Glucose 110 H Lactic Acid Calcium 8.3 L Total Bilirubin 8.5 H Direct Bilirubin 5.4 H AST 73 H ALT 77 H Alkaline Phosphatase 78 Creatine Kinase Creatine Kinase Index CK-MB (CK-2) Troponin I Total Protein 6.7 Albumin 3.4 Urine Color Urine Appearance Urine pH Ur Specific [place] Urine Protein Urine Glucose (UA) Urine Ketones Urine Blood Urine Nitrite Urine Bilirubin Urine Urobilinogen Ur Leukocyte Esterase Urine WBC (Auto) Urine RBC (Auto) Urine Casts (Auto) U Epithel Cells (Auto) Urine Bacteria (Auto) Urine Yeast (Auto) 04/22/19 04/22/19 04/22/19 17:00 17:00 17:00 WBC RBC Hgb Hct MCV MCH MCHC RDW Plt Count MPV Absolute Neuts (auto) Neutrophils % Lymphocytes % Monocytes % Eosinophils % Basophils % Nucleated RBC % PT with INR INR PTT (Actin FS) VBG pH 7.35 POC VBG pCO2 43.1 POC VBG pO2 < 49 H VBG HCO3 23.3 VBG O2 Sat (Randi) 38.4 L VBG Base Excess -1.8 Sodium Potassium Chloride Carbon Dioxide Anion Gap BUN Creatinine Est GFR (CKD-EPI)AfAm Est GFR (CKD-EPI)NonAf Random Glucose Lactic Acid 2.9 H* Calcium Total Bilirubin Direct Bilirubin AST ALT Alkaline Phosphatase Creatine Kinase 220 Creatine Kinase Index 1.9 CK-MB (CK-2) 4.3 H Troponin I 0.30 H Total Protein Albumin Urine Color Urine Appearance Urine pH Ur Specific [place] Urine Protein Urine Glucose (UA) Urine Ketones Urine Blood Urine Nitrite Urine Bilirubin Urine Urobilinogen Ur Leukocyte Esterase Urine WBC (Auto) Urine RBC (Auto) Urine Casts (Auto) U Epithel Cells (Auto) Urine Bacteria (Auto) Urine Yeast (Auto) 04/22/19 04/22/19 04/23/19 17:27 21:41 00:05 WBC RBC Hgb Hct MCV MCH MCHC RDW Plt Count MPV Absolute Neuts (auto) Neutrophils % Lymphocytes % Monocytes % Eosinophils % Basophils % Nucleated RBC % PT with INR INR PTT (Actin FS) VBG pH POC VBG pCO2 POC VBG pO2 VBG HCO3 VBG O2 Sat (Randi) VBG Base Excess Sodium Potassium Chloride Carbon Dioxide Anion Gap BUN Creatinine Est GFR (CKD-EPI)AfAm Est GFR (CKD-EPI)NonAf Random Glucose Lactic Acid 5.0 H* 5.8 H* Calcium Total Bilirubin Direct Bilirubin AST ALT Alkaline Phosphatase Creatine Kinase Creatine Kinase Index CK-MB (CK-2) Troponin I Total Protein Albumin Urine Color Dk yellow Urine Appearance Cloudy Urine pH 5.0 Ur Specific [place] 1.013 Urine Protein 1+ H Urine Glucose (UA) Negative Urine Ketones Negative Urine Blood 2+ H Urine Nitrite Negative Urine Bilirubin 1+ H Urine Urobilinogen 0.2 Ur Leukocyte Esterase 2+ H Urine WBC (Auto) 42 Urine RBC (Auto) 6 Urine Casts (Auto) 3 U Epithel Cells (Auto) 1.0 Urine Bacteria (Auto) 4356.8 Urine Yeast (Auto) Positive 04/23/19 00:15 WBC RBC Hgb Hct MCV MCH MCHC RDW Plt Count MPV Absolute Neuts (auto) Neutrophils % Lymphocytes % Monocytes % Eosinophils % Basophils % Nucleated RBC % PT with INR INR PTT (Actin FS) VBG pH POC VBG pCO2 POC VBG pO2 VBG HCO3 VBG O2 Sat (Randi) VBG Base Excess Sodium Potassium Chloride Carbon Dioxide Anion Gap BUN Creatinine Est GFR (CKD-EPI)AfAm Est GFR (CKD-EPI)NonAf Random Glucose Lactic Acid Calcium Total Bilirubin Direct Bilirubin 5.9 H AST ALT Alkaline Phosphatase Creatine Kinase Creatine Kinase Index CK-MB (CK-2) Troponin I 0.43 H Total Protein Albumin Urine Color Urine Appearance Urine pH Ur Specific [place] Urine Protein Urine Glucose (UA) Urine Ketones Urine Blood Urine Nitrite Urine Bilirubin Urine Urobilinogen Ur Leukocyte Esterase Urine WBC (Auto) Urine RBC (Auto) Urine Casts (Auto) U Epithel Cells (Auto) Urine Bacteria (Auto) Urine Yeast (Auto) Imaging: CT abd&pelvis without contrast - there is equivocal mild hepatic surface irregularity which could be on the basis of cirrhosis, correlation with follow up CT or MRI may be perfomed. A small right hepatic lobe calcification is noted possibly representing a granuloma. Mild splenomegaly. Minimal to mild urinary bladder overdistension. ASSESSMENT/PLAN: 33 y/o/m from [facility] with PMHx of urethral stricture, for which he self dilates, and Hep B here for hematuria, fever, and body aches. 1)Sepsis Shock - likely secondary to UTI but will rule out other etiologies -WBC 14.6, elevated lactic, hypotension, UA with 1+ protien, 2+blood, 1+bili, 2+ leuk esterase, positive yeast, urine bacteria 4356.8 -Received one dose of Vanc and Zosyn in the ED -Continue IV Zosyn 3.375 Q8hr -Start Diflucan due to UA with positive yeast -LR @ 125 mls/hr -Levophed gtt -trend lactic acid - elevation likely secondary to septic shock -trend trop - elevation likely due to demand -trend LFTs -ID consulted, Dr. Peterson -Urology consulted, Dr. 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 Garza 3)Hyperbilrubinemia - elevated T-bili -fractionate to determine indirect bili -RUQ U/S for further evaluation of gallbladder 4)JEFF vs CKD? - likely secondary to urinary obstruction as bladder is overdistended on CT and patient with history of urethral strictures -IVF -Nephro consulted, Dr. Preciado 5)Transaminitis -patient with history of chronic Hep B -possibly secondary to cirrhosis -f/u A1AT, autoimmune - anti smooth muscle AB -Utox -Hep Panel -HIV test 6)Thrombocytopenia -possibly secondary to cirrhosis. -could be due to splenic sequestration of platelets. CT shows splenomegaly. -will hold chemical anticoagulation for now 7)Prophylaxis -holding chemical anticoagulation for now 8)FEN -LR @ 125mls/h 10)Disposition -admitted to ICU Visit type - Emergency Visit Emergency Visit: Yes ED Registration Date: 04/22/19 Care time: The patient presented to the Emergency Department on the above date and was hospitalized for further evaluation of their emergent condition. - New Patient This patient is new to me today: Yes Date on this admission: 04/23/19 - Critical Care Critical Care patient: Yes Total Critical Care Time (in minutes): 35 Critical Care Statement: The care of this patient involved high complexity decision making to prevent further life threatening deterioration of the patient 's condition and/or to evaluate & treat vital organ system(s) failure or risk of failure. ATTENDING PHYSICIAN STATEMENT I saw and evaluated the patient. I reviewed the resident's note and discussed the case with the resident. I agree with the resident's findings and plan as documented. SUBJECTIVE: OBJECTIVE: ASSESSMENT AND PLAN:
[2019-04-23] MEDS ORDERED: PIPERACILLIN/TAZOB 3.375 GM 3.375 GM in DEXTROSE 5%-WATER - 50 ML IVPB SCH (02:00)
[2019-04-23] MEDS ORDERED: NOREPINEPHRINE BITARTRATE 4 MG/4 ML ML IV ONE ×3 (02:48→15:07)
[2019-04-23] MEDS ORDERED: VASOPRESSIN 50 UNITS in SODIUM CHLORIDE 97.5 ML IVPB SCH ×2 (03:30→10:45)
[2019-04-23] MEDS: NOREPINEPHRINE BITARTRATE 8,000 MCG in DEXTROSE 5%-WATER - 492 ML IV SCH ×2 (03:45→07:30)
[2019-04-23 07:11] LABS: BASO % 0.1 % (0-2.0); EOS % 0.2 % (0-4.5); HEMATOCRIT 36.1 % (35.4-49); HEMOGLOBIN 12.2 GM/dL (11.7-16.9); LYMPH % 4.1 % (8-40); MCH 29.5 pg (25.7-33.7); MCHC 33.8 g/dl (32.0-35.9); MEAN CELL VOLUME 87.3 fl (80-96); MEAN PLT VOLUME 11.1 fl (7.5-11.1); MONO % 2.9 % (3.8-10.2); NEUT % 92.7 % (42.8-82.8); PLATELET COUNT 48 K/MM3 (134-434); RBC 4.14 M/mm3 (4.00-5.60); RDW 14.5 % (11.9-15.9); WHITE BLOOD COUNT 15.1 K/mm3 (4.0-10.0)
[2019-04-23 07:33] LABS: BILIRUBIN,DIRECT 6.1 mg/dL (0.0-0.2); MAGNESIUM 1.6 mg/dL (1.8-2.4)
[2019-04-23 08:04] LABS: INR 2.11 (0.83-1.09); PROTHROMBIN TIME (PATIENT) 25.1 SEC (9.7-13.0)
[2019-04-23 09:08] LABS: BILIRUBIN,TOTAL 7.6 mg/dL (0.2-1); BLOOD UREA NITROGEN 46.8 mg/dL (7-18); CALCIUM 7.7 mg/dL (8.5-10.1); CREATININE 2.3 mg/dL (0.55-1.3); POTASSIUM 3.8 mmol/L (3.5-5.1); TOT PROT 5.7 g/dl (6.4-8.2)
[2019-04-23] MEDS ORDERED: PT OWN MED DRAWER 7, Y5N ONE ×2 (09:26→10:38)
[2019-04-23] MEDS ORDERED: FLUDROCORTISONE ACETATE 0.1 MG TABLET (FP) PO SCH (10:00)
[2019-04-23] MEDS ORDERED: FLU VACCINE QUAD 60 MCG/0.5 ML (MDV 19-20) IM ONE (10:00)
[2019-04-23] MEDS ORDERED: FLUCONAZOLE 400 MG/NS 200 ML IVPB ONE (10:00)
[2019-04-23] MEDS ORDERED: FLUCONAZOLE 400 MG/NS 200 ML IVPB SCH (10:00)
[2019-04-23] MEDS ORDERED: HYDROCORTISONE 20 MG TABLET PO SCH (10:45)
--- NOTE | 2019-04-23 11:23 | ECHO ---
Name: CARRINGTON BRAY Exam:Adult Echocardiogram Study Date: 04/23/2019 07:55 AM Age: 33 yrs Reason For Study: troponin Height: 68 in Weight: 175 lb BSA: 1.9 m2 MMode/2D Measurements & Calculations IVSd: 0.80 cm Ao root diam: 2.5 cm LVIDd: 5.5 cm LA dimension: 3.2 cm LVIDs: 4.3 cm LVPWd: 0.77 cm EDV(Teich): 148.5 ml LVOT diam: 2.0 cm ESV(Teich): 81.7 ml LAV (MOD-bp): 34.7 ml Doppler Measurements & Calculations MV E max aj: 81.0 cm/sec Ao V2 max: 123.7 cm/sec MV A max aj: 32.5 cm/sec Ao max P.1 mmHg MV E/A: 2.5 MV dec time: 0.17 sec SANDOVAL(V,D): 1.9 cm2 LV V1 max P.5 mmHg MR max aj: 469.5 cm/sec LV V1 max: 78.6 cm/sec MR max P.2 mmHg TR max aj: 229.5 cm/sec PA V2 max: 87.5 cm/sec TR max P.2 mmHg PA max P.1 mmHg Med Peak E' Aj: 7.9 cm/sec PI Vmax: 95.0 cm/sec Med E/e': 10.2 Lat Peak E' Aj: 13.4 cm/sec Lat E/e': 6.1 Left Ventricle Left ventricular systolic function is borderline reduced. Ejection Fraction = 45-50%. No discrete wal l motion abnormalities. There is mild global hypokinesis of the left ventricle. Right Ventricle The right ventricle is borderline dilated. The right ventricular systolic function is grossly normal. Atria Normal left and right atrial size and function. Mitral Valve The mitral valve is normal in structure and function. There is no mitral valve stenosis. There is mil d mitral regurgitation. Tricuspid Valve The tricuspid valve is normal in structure and function. There is mild tricuspid regurgitation. Right ventricular systolic pressure is normal. Aortic Valve The aortic valve opens well. No hemodynamically significant valvular aortic stenosis. No aortic regur gitation is present. Pulmonic Valve The pulmonic valve is not well seen, but is grossly normal. There is no pulmonic valvular stenosis. T race pulmonic valvular regurgitation. Great Vessels The aortic root is normal size. Pericardium/Pleura There is no pericardial effusion. Interpretation Summary Left ventricular systolic function is borderline reduced. Ejection Fraction = 45-50%. No discrete wall motion abnormalities. The right ventricle is borderline dilated. The right ventricular systolic function is grossly normal. There is mild mitral regurgitation. There is mild tricuspid regurgitation. Right ventricular systolic pressure is normal. There is no pericardial effusion. MD Zuluaga *Destini 04/23/2019 11:22 AM
--- NOTE | 2019-04-23 11:24 | PN ---
Progress Note (short form) - Note Progress Note: Covering service overnight, please refer patient to GI service Dr Bourgeois.
--- NOTE | 2019-04-23 11:26 | CONSULT ---
Consultation: REQUESTING PROVIDER: CONSULT REQUEST: We have been asked to medically evaluate this patient for septic shock secondary to UTI. HISTORY OF PRESENT ILLNESS: Pt is a 33 yo M with PMHx of urethral stricture, Hep B, recently relocated to [facility] on Feb 24 from [facility] for studies, presenting with 2 day hx of fever and generalized malaise and referred from urgent care center for hypotension. Pt reports urethral stricture with intermittent (2ce a month) self dilation, last dilation on Friday day time. At night he started to have generalized body pains , diaphoresis and one episode of hematuria, for which he took azithromycin and paracetamol (brought along with him) on Friday and Friday with no relief. He was noted to be febrile and hypotensive at the urgent center with Tmax 103.4 documented. Pt had been receiving care in both [facility] and [facility] prior to relocation and had cystoscopy twice for stricture of unknown cause. Pt has never had a UTI, but has been doing the intermittent cauterizations with a plastic cathether that he keeps clean. 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 Does not know if he ever got BCG or PPD, no current couigh hx. Pt reports testing positive for HsAg at age 23 years at a seminary and was never treated. He however had jaundice at age 10 years. Has been living in [place] at [facility] for his Masters. Pt acknowledges bug bites in [facility]. At the ED he received fluids in accordance with sepsis protocol and remained refractory, levophed was started. He also received vanc, ceftriaxone, zosyn, fluconazole. He reported nausea, initially with no vomiting, but had an episode of vomiting this am of greenish, non bloody substance after PO intake.This morning he was still needing pressor support although he was awake and conversational, with generalized malaise. 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 REVIEW OF SYSTEMS: CONSTITUTIONAL: fever+, chills+, diaphoresis+, generalized weakness+, malaise+,body pain, No weight change HEENT: No rhinorrhea, nasal congestion, throat pain, or cough CARDIOVASCULAR: No chest pain, syncope, palpitations, irregular heart rate RESPIRATORY: No cough, shortness of breath, dyspnea with exertion, orthopnea, wheezing, stridor, hemoptysis GASTROINTESTINAL:nausea+, vomiting+, No abdominal pain, abdominal distension, diarrhea, constipation, melena, hematochezia GENITOURINARY: Absent: dysuria, frequency, urgency, hesitancy, hematuria, flank pain, genital pain MUSCULOSKELETAL: myalgia+, arthralgia+, Absent: joint swelling, back pain, neck pain SKIN: Absent: rash, itching, pallor ENDOCRINE: Absent: unexplained weight gain, unexplained weight loss, heat intolerance, cold intolerance NEUROLOGIC: Absent: headache, focal weakness or paresthesias, dizziness, unsteady gait, seizure, mental status changes, PHYSICAL EXAMINATION Vital Signs - 24 hr 04/22/19 04/22/19 04/22/19 16:38 18:08 18:27 Temperature 98.7 F 99.0 F 103.4 F H Pulse Rate 102 H Pulse Rate [ 82 Apical] Respiratory 18 16 Rate Blood Pressure 82/49 L Blood Pressure 106/78 [Right Arm] O2 Sat by Pulse 100 94 L Oximetry (%) 04/22/19 04/22/19 04/22/19 20:52 21:36 21:59 Temperature Pulse Rate 105 H Pulse Rate [ 105 H 115 H Apical] Respiratory 36 H 38 H Rate Blood Pressure 78/47 L Blood Pressure 75/40 L 80/52 L [Right Arm] O2 Sat by Pulse 97 96 Oximetry (%) 04/22/19 04/22/19 04/23/19 22:57 23:43 00:00 Temperature Pulse Rate 112 H 111 H Pulse Rate [ 120 H Apical] Respiratory 38 H 37 H Rate Blood Pressure 83/45 L 81/49 L Blood Pressure 94/41 L [Right Arm] O2 Sat by Pulse Oximetry (%) 04/23/19 04/23/19 04/23/19 00:21 00:32 01:37 Temperature 99.1 F Pulse Rate 116 H 113 H 106 H Pulse Rate [ Apical] Respiratory 32 H Rate Blood Pressure 81/49 L 77/44 L 89/50 L Blood Pressure [Right Arm] O2 Sat by Pulse 96 Oximetry (%) 04/23/19 04/23/19 04/23/19 02:00 03:45 04:00 Temperature Pulse Rate 113 H 112 H 99 H Pulse Rate [ Apical] Respiratory 29 H 10 Rate Blood Pressure 88/62 L 81/51 L 113/72 Blood Pressure [Right Arm] O2 Sat by Pulse Oximetry (%) 04/23/19 04/23/19 04/23/19 06:00 07:30 10:00 Temperature 97.9 F Pulse Rate 96 H 95 H Pulse Rate [ Apical] Respiratory 30 H 20 Rate Blood Pressure 102/65 109/70 Blood Pressure [Right Arm] O2 Sat by Pulse 96 Oximetry (%) GENERAL: Awake, alert, and fully oriented, in no acute painful distress, NC . EYES: Pupils equal, round and reactive to light, sclera anicteric EARS, NOSE, THROAT: oropharynx clear without exudates. Moist mucous membranes. NECK: supple without lymphadenopathy, JVD, or masses. LIJ LUNGS: Breath sounds equal, clear to auscultation bilaterally. No wheezes, and no crackles. HEART: Tachycardic, S1 and S2 without murmur, rub or gallop. ABDOMEN: Soft, nontender, not distended, normoactive bowel sounds, no guarding, no rebound, no masses. MUSCULOSKELETAL: Normal range of motion at all joints. No CVA tenderness. LOWER EXTREMITIES: 2+ pulses, warm, well-perfused. No calf tenderness. No peripheral edema. NEUROLOGICAL: Cranial nerves II-XII intact. Normal speech. Gait not observed PSKIN: Warm, no rashes CBCD WBC 15.1 K/mm3 (4.0-10.0) H 04/23/19 05:40 RBC 4.14 M/mm3 (4.00-5.60) 04/23/19 05:40 Hgb 12.2 GM/dL (11.7-16.9) 04/23/19 05:40 Hct 36.1 % (35.4-49) 04/23/19 05:40 MCV 87.3 fl (80-96) 04/23/19 05:40 MCHC 33.8 g/dl (32.0-35.9) 04/23/19 05:40 RDW 14.5 % (11.9-15.9) 04/23/19 05:40 Plt Count 48 K/MM3 (134-434) L D 04/23/19 05:40 MPV 11.1 fl (7.5-11.1) 04/23/19 05:40 CMP Sodium 136 mmol/L (136-145) 04/23/19 05:40 Potassium 3.8 mmol/L (3.5-5.1) 04/23/19 05:40 Chloride 104 mmol/L (98-107) 04/23/19 05:40 Carbon Dioxide 19 mmol/L (21-32) L 04/23/19 05:40 Anion Gap 13 MMOL/L (8-16) 04/23/19 05:40 BUN 46.8 mg/dL (7-18) H 04/23/19 05:40 Creatinine 2.3 mg/dL (0.55-1.3) H 04/23/19 05:40 Random Glucose 153 mg/dL (74-106) H 04/23/19 05:40 Calcium 7.7 mg/dL (8.5-10.1) L 04/23/19 05:40 Total Bilirubin 7.6 mg/dL (0.2-1) H 04/23/19 05:40 AST 69 U/L (15-37) H 04/23/19 05:40 ALT 75 U/L (13-61) H 04/23/19 05:40 Alkaline Phosphatase 128 U/L (45-117) H 04/23/19 05:40 Total Protein 5.7 g/dl (6.4-8.2) L 04/23/19 05:40 Albumin 3.0 g/dl (3.4-5.0) L 04/23/19 05:40 CARDIAC ENZYMES Creatine Kinase 220 U/L (26-308) 04/22/19 17:00 Troponin I 1.34 ng/ml (0.00-0.05) H* 04/23/19 12:16 Active Medications Generic Name Dose Route Start Last Admin Trade Name Freq PRN Reason Stop Dose Admin Chlorhexidine Gluconate 1 applic 04/22/19 22:00 Hibiclens For Decolonization - TP HS JOHNY Fludrocortisone Acetate 0.05 mg 04/23/19 10:00 Florinef - PO 04/29/19 10:00 DAILY JOHNY Hydrocortisone 50 mg 04/23/19 10:45 Cortef - PO QID JOHNY Lactated Ringer's 1,000 ml in 1,000 mls @ 125 mls/hr 04/23/19 00:57 04/23/19 07:53 Lactated Ringers Solution IV 125 mls/hr ASDIR JOHNY Administration Norepinephrine Bitartrate 8, 500 mls @ 112.5 mls/hr 04/23/19 03:45 04/23/19 07:30 000 mcg/ Dextrose IV 25.01 mcg/min TITR JOHNY 93.8 mls/hr Administration Protocol 30 MCG/MIN Vasopressin 50 units/ Sodium 100 mls @ 4 mls/hr 04/23/19 10:45 Chloride IVPB ASDIR JOHNY Protocol 2 UNITS/HR Meropenem 1 gm/ Dextrose 100 mls @ 200 mls/hr 04/23/19 11:30 IVPB Q8H-IV JOHNY Melatonin 5 mg 04/23/19 01:05 Melatonin PO HS PRN INSOMNIA Mupirocin 1 applic 04/22/19 22:00 04/23/19 10:08 Bactroban Ointment (For Decolonization) - NS 04/27/19 21:59 1 applic BID JOHNY Administration CTAP/w/o contrast 04/22/19:Impression: There is no hydronephrosis. Evaluation of the upper abdomen is somewhat limited due to respiratory motion artifact. There is equivocal mild hepatic surface irregularity which could be on the basis of cirrhosis. Correlation with follow-up CT or MRI may be performed. No gross mass lesion is seen. A small right hepatic lobe calcification is noted possibly representing granuloma. Mild splenomegaly. Minimal to mild urinary bladder overdistention as noted above. The partially imaged left posterior basilar region demonstrates mild increased opacity probably on the basis of atelectasis (versus representing a small infiltrate). Correlate clinically. Consider follow-up CT. Abd US: 06/01: The study is limited and was performed in a portable manner. The gallbladder is normal in size and free of calculi with no evidence of intra or extrahepatic biliary duct dilatation. The liver is enlarged measuring 19 cm in craniocaudad dimension. It is somewhat heterogeneous in texture with no discrete intrahepatic masses seen. There is a left lobe calcification suspicious for prior granulomatous disease. Hepatopedal flow is documented within the main portal vein. The pancreas is poorly visualized due to overlying bowel gas. The spleen is slightly enlarged measuring 12.1 cm. There is no evidence of hydronephrosis or acute renal abnormalities. The kidneys are somewhat echogenic in texture consistent with medical renal disease. There is no evidence of AAA. The IVC is patent. IMPRESSION: 1. Mild hepatosplenomegaly. 2. Echogenic kidneys consistent with medical renal disease. There is no evidence of hydronephrosis or acute renal pathology. Limited study as described above.. ASSESSMENT/PLAN: Pt is a 33 yo M with PMHx of urethral stricture, Hep B, recently relocated to [facility] on Feb 24 from [facility] for studies, presenting with 2 day hx of fever and generalized malaise and referred from urgent care center for hypotension, admitted to ICU for refractory shock, on pressors, noted to have cirrhosis, with JEFF and UTI. urethral stricture, Hep B, recently relocated to [facility] on Feb 24 from [facility] fever and generalized malaise Septic shock secondary to UTI shock refractory to fluids, on pressors, noted to have cirrhosis, thrombocytopenia possibly in setting of CLD vs sepsis Obstructive jaundice Acute on chronic liver failure Urinary retention JEFF Plan: Septic shock secondary to UTI, pt at risk of resistant strains (possible [place] metallo-beta lactamase-1 -NDM1), will switch to meropenem, vanco, one dose, random trough pending in am Capsofungin loading given today- yeast in UA, received fluconazole overnight pt with cirrhosis Child Campos Class B-9, will need dose adjustment for caspofungin continuation in am MELD score 30-D/W Dr Bourgeois, pt may benefit from transfer to Tertiary center Blood smears for malaria, babesia, anaplasmosis pending Cx pending Chlamydia/GC pending HIV neg Hepatitis panel pending quantiferon, sputum cx/AFB NAAT pending- TB less likely for acute illness Leptospirosis pending- less likely Other mx per ICU D/W Dr Nicholas Vila MD, PGY 3 Infectious Dx rotation Dispo: We will continue to follow the patient. Thank you for this consultative opportunity. Visit type - Emergency Visit Emergency Visit: Yes ED Registration Date: 04/22/19 Care time: The patient presented to the Emergency Department on the above date and was hospitalized for further evaluation of their emergent condition. - New Patient This patient is new to me today: Yes Date on this admission: 04/23/19 - Critical Care Critical Care patient: Yes Total Critical Care Time (in minutes): 30 Critical Care Statement: The care of this patient involved high complexity decision making to prevent further life threatening deterioration of the patient 's condition and/or to evaluate & treat vital organ system(s) failure or risk of failure. ATTENDING PHYSICIAN STATEMENT I saw and evaluated the patient. I reviewed the resident's note and discussed the case with the resident. I agree with the resident's findings and plan as documented. SUBJECTIVE: OBJECTIVE: ASSESSMENT AND PLAN:
[2019-04-23 11:37] LABS: COCAINE, UR NEGATIVE ng/ml (CUTOFF=300); METHADONE, UR NEGATIVE ng/ml (CUTOFF=300); OPIATES, URI NEGATIVE ng/ml (CUTOFF=300); PHENCYCLIDINE,URINE NEGATIVE ng/ml (CUTOFF=25); URINE AMPHETAMINES NEGATIVE ng/ml (CUTOFF=500); URINE BARBITURATES NEGATIVE ng/ml (CUTOFF=200); URINE BENZODIAZEPINES NEGATIVE ng/ml (CUTOFF=200)
[2019-04-23] MEDS ORDERED: DEXTROSE 5%-WATER 100 ML IVPB ONE ×2 (11:37→17:46)
[2019-04-23] MEDS ORDERED: MEROPENEM 1 GM VIAL (RESTRICTED TO ID) IVPB ONE ×2 (11:37→17:45)
[2019-04-23] MEDS: MEROPENEM 1 GM in DEXTROSE 5%-WATER 100 ML IVPB SCH ×2 (11:38→17:47)
--- NOTE | 2019-04-23 11:59 | CON.GI ---
Consult Consult Specialty:: GI Referred by:: Hospitalist Service Reason for Consultation:: Hyperbilirubinemia with hepatic granuloma - History of Present Illness Chief Complaint: diffuse body aches, difficulty urinating History of Present Illness: 33M from [facility] admitted through [facility] for evaluation of 1 week of diffuse body aches, fevers. States that this occurred after her was attempting self catheterization of urethra secondary to stricture. He was living in [facility] up until 03/01. Noted hypotensive and there is concern for septic shock. He is on pressors and received several liters of fluid. Asked to evaluate abnormal liver chemistries. INR elevated as well as bilirubin and transaminases. Patient explains that he has "HBSAG" and has knowm about this over the last 10 years. He said that he did not need treatment. Two of his other siblings has hepatitis B. His parents do not have hepatitis B. He has been taking zithromycin since friday for treatment of his symptoms. He took a total of three paracetamol pills. one friday morning and evening, 1 friday morning. He describes a jaundiced episode when he was around [address] scan of the A/P revealed a hepatic granuloma, mild surface irregularity of the liver and mild splenomegaly. Abdominal US reveaeld hepatosplenomegaly, non- dilated biliary tract and failed to reveal gallstones. he vomited bilious fluid while I was examining him. He denies abdominal pain. We have no records of previous liver chemistries for comparison. - Alcohol/Substance Use Hx Alcohol Use: No - Smoking History Smoking history: Never smoked Home Medications - Allergies Allergies/Adverse Reactions: Allergies Allergy/AdvReac Type Severity Reaction Status Date / Time No Known Allergies Allergy Verified 04/22/19 16:38 - Home Medications Home Medications: Ambulatory Orders Azithromycin [Zithromax] 500 mg PO ONCE 04/22/19 Family Medical History Other Family History: Mother: Alive: DM II. Father: Alive: Dm II. 1 sister: DM II. 2 brothers, 5 sisters. 2 siblings with hepatitis B. No family history of other liver disease, HCC Review of Systems - Review of Systems Constitutional: reports: Chills, Fever. denies: Unintentional Wgt. Loss Cardiovascular: denies: Chest Pain Respiratory: denies: SOB Gastrointestinal: denies: Abdominal Pain, Constipation, Melena, Rectal Bleeding , Vomiting Physical Exam-GI Vital Signs: Vital Signs Temperature 97.9 F 04/23/19 10:00 Pulse Rate 95 H 04/23/19 07:30 Respiratory Rate 20 04/23/19 07:30 Blood Pressure 109/70 04/23/19 07:30 O2 Sat by Pulse Oximetry (%) 96 04/23/19 07:30 Constitutional: Yes: Calm Eyes: Yes: Sclera Icterus Cardiovascular: Yes: Tachycardia. No: Murmur Respiratory: Yes: Diminished (at bases bilaterally, poor insp effort) Gastrointestinal Inspection: No: Distention, Scars ...Auscultate: Yes: Normoactive Bowel Sounds ...Palpate: Yes: Soft. No: Hepatomegaly, Splenomegaly, Tenderness ...Percussion: No: Tympanitic Edema: No (No LE edema) Neurological: Yes: Alert, Oriented (x 3). No: Asterixis Labs: CBC, BMP 04/23/19 05:40 04/23/19 05:40 INR, PTT INR 2.11 (0.83-1.09) H 04/23/19 05:40 Hepatic Panel Total Bilirubin 7.6 mg/dL (0.2-1) H 04/23/19 05:40 Direct Bilirubin 6.1 mg/dL (0.0-0.2) H 04/23/19 05:40 AST 69 U/L (15-37) H 04/23/19 05:40 ALT 75 U/L (13-61) H 04/23/19 05:40 Alkaline Phosphatase 128 U/L (45-117) H 04/23/19 05:40 Albumin 3.0 g/dl (3.4-5.0) L 04/23/19 05:40 Given potential risk for acute on chronic liver disease: CPS: 9 MELDNa: 31 Problem List - Problems (1) Abnormal liver function tests Assessment/Plan: Concern is for acute on chronic liver failure in the setting of suspected sepsis. Chronic liver disease may be on the basis of chronic hepatitis C or alternate cause. Renal dysfunction as well. Some response to significant IV hydration. We have no outpatient records to compare Fr. Davidson's liver function prior to this acute episode as he has been living in [facility]. Unclear how much liver function he will recover or if he will continuen to decompensate: Advise: Continuing supportive measures per critical care team Hepatitis serolgies are pending Monitor Liver chemistries including PT / INR Avoid hepatotoxic agents Monitor mental status ID following Advise arranging transfer to tertiary care liver center based on degree of liver dysfunction Code(s): R94.5 - ABNORMAL RESULTS OF LIVER FUNCTION STUDIES
[2019-04-23] MEDS ORDERED: HYDROCORTISONE SOD SUCCINATE 2 ML ONE (12:11)
--- NOTE | 2019-04-23 12:15 | PN ---
Teaching Attending Note Name of Resident: Tammy Vila ATTENDING PHYSICIAN STATEMENT I saw and evaluated the patient. I reviewed the resident's note and discussed the case with the resident. I agree with the resident's findings and plan as documented. 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, 2 in [facility] never had a uti but was given antibioitcs to take if he had bleeding with the dilatation no other symptoms noted to be profoundly hypotensive in the ED didnot respond to fluids central line and pressors started arrived mid February from [facility]- has been well until the dilatation OBJECTIVE: Vital Signs Period Temp Pulse Resp BP Sys/Paez Pulse Ox Last 24 Hr 97.9 F-103.4 F 82-120 10-38 75-113/40-78 94-100 cor-rrr llungs clear abd soft,nt no ascites ext no edema CBC, BMP 04/23/19 05:40 04/23/19 05:40 cultures pending Laboratory Tests 04/23/19 04/23/19 04/23/19 05:40 05:40 05:40 INR 2.11 H Lactic Acid 5.0 H* Total Bilirubin 7.6 H Direct Bilirubin 6.1 H AST 69 H ALT 75 H Alkaline Phosphatase 128 H 04/23/19 10:04 INR Lactic Acid 4.1 H* Total Bilirubin Direct Bilirubin AST ALT Alkaline Phosphatase ASSESSMENT AND PLAN: severe sepsis chronic hep B- details unknown JEFF-renal function unknown echo pending Crcl is 50 would escalate antibiotics to meropenem and cancidas (yeast in urine)-will give load of cancidas and adjust does based on f/u lfts in am given severity of his liver disease and severe sepsis he would benefit from transfer to facility with liver team patient informed d/w livestock sales representative icu will reach out to tertiary care center would get malaria smear as well although timing of symptoms is certainly consistent with a urinary process urology eval pending-will get bladder scan d/w GI over 45 minutes spent in the care of this critically ill ICU patient Problem List - Problems (1) Sepsis Code(s): A41.9 - SEPSIS, UNSPECIFIED ORGANISM Qualifiers: Sepsis type: sepsis due to unspecified organism Sepsis acute organ dysfunction status: with acute organ dysfunction Severe sepsis acute organ dysfunction type: acute renal failure Acute renal failure type: unspecified Severe sepsis shock status: with septic shock Qualified Code(s): A41.9 - Sepsis, unspecified organism; R65.21 - Severe sepsis with septic shock; N17.9 - Acute kidney failure, unspecified (2) UTI (urinary tract infection) Code(s): N39.0 - URINARY TRACT INFECTION, SITE NOT SPECIFIED Qualifiers: Urinary tract infection type: site unspecified Hematuria presence: with hematuria Qualified Code(s): N39.0 - Urinary tract infection, site not specified; R31.9 - Hematuria, unspecified (3) JEFF (acute kidney injury) Code(s): N17.9 - ACUTE KIDNEY FAILURE, UNSPECIFIED (4) Chronic hepatitis B Code(s): B18.1 - CHRONIC VIRAL HEPATITIS B WITHOUT DELTA-AGENT
[2019-04-23] MEDS: methylPREDNISolone NA SUCC 40 MG/1 ML VIAL IVPUSH SCH ×2 (12:16→16:17)
--- NOTE | 2019-04-23 12:25 | PN ---
Teaching Attending Note Name of Resident: Chris Smith ATTENDING PHYSICIAN STATEMENT I saw and evaluated the patient. I reviewed the resident's note and discussed the case with the resident. I agree with the resident's findings and plan as documented. SUBJECTIVE: Patient seen and examined in the ICU. Awake and alert. No CP or SOB. NE @ 20mcq for hemodynamics, which are intermittently marginal. Intake & Output 04/20/19 04/21/19 04/22/19 04/23/19 23:59 23:59 23:59 23:59 Intake Total 3403 Output Total 2205 Balance 1198 Weight 175 lb Last Vital Signs Temp Pulse Resp BP Pulse Ox 97.9 F 92 H 20 107/63 96 04/23/19 10:00 04/23/19 12:15 04/23/19 07:30 04/23/19 12:15 04/23/19 07:30 Active Medications Chlorhexidine Gluconate (Hibiclens For Decolonization -) 1 applic TP HS JOHNY Fludrocortisone Acetate (Florinef -) 0.05 mg PO DAILY JOHNY Stop: 04/29/19 10:00 Lactated Ringer's (Lactated Ringers Solution) 1,000 ml in 1,000 mls @ 125 mls/ hr IV ASDIR JOHNY Last Admin: 04/23/19 07:53 Dose: 125 mls/hr Norepinephrine Bitartrate 8, (000 mcg/ Dextrose) 500 mls @ 112.5 mls/hr IV TITR JOHNY; Protocol Last Admin: 04/23/19 07:30 Dose: 25.01 mcg/min, 93.8 mls/hr Vasopressin 50 units/ Sodium (Chloride) 100 mls @ 4 mls/hr IVPB ASDIR JOHNY; Protocol Last Admin: 04/23/19 12:15 Dose: 2 units/hr, 4 mls/hr Meropenem 1 gm/ Dextrose 100 mls @ 200 mls/hr IVPB Q8H-IV JOHNY Last Admin: 04/23/19 11:38 Dose: 200 mls/hr Caspofungin 70 mg/ Sodium (Chloride) 250 mls @ 250 mls/hr IVPB ONCE ONE Stop: 04/23/19 13:59 Last Admin: 04/23/19 12:31 Dose: 250 mls/hr Melatonin (Melatonin) 5 mg PO HS PRN PRN Reason: INSOMNIA Methylprednisolone Sodium Succinate (Solu-Medrol -) 50 mg IVPUSH Q6H-IV JOHNY Last Admin: 04/23/19 12:16 Dose: 50 mg Mupirocin (Bactroban Ointment (For Decolonization) -) 1 applic NS BID [facility] Stop: 04/27/19 21:59 Last Admin: 04/23/19 10:08 Dose: 1 applic GENERAL: Awake, alert, weak appearing HEAD: Normal with no signs of trauma. EYES: (+) scleral icterus, (-) Pallor EARS, NOSE, THROAT: Ears normal, nares patent, oropharynx clear without exudates. Moist mucous membranes. NECK: Normal range of motion, supple without lymphadenopathy LUNGS: Breath sounds equal, clear to auscultation bilaterally. No wheezes, and no crackles. No accessory muscle use. HEART: +tachycardic rate and rhythm, normal S1 and S2 without murmur, rub or gallop. ABDOMEN: Soft, distended, normoactive bowel sounds LOWER EXTREMITIES: 2+ pt pulses, warm, well-perfused. No calf tenderness. No peripheral edema. NEUROLOGICAL: no-focal PSYCHIATRIC: Cooperative. Laboratory Results - last 24 hr 04/22/19 04/22/19 04/22/19 17:00 17:00 17:00 WBC 14.6 H RBC 4.75 Hgb 14.0 Hct 42.3 MCV 89.0 MCH 29.4 MCHC 33.1 RDW 14.5 Plt Count 74 L MPV 10.6 Absolute Neuts (auto) 13.3 H Neutrophils % 90.9 H Lymphocytes % 4.4 L Monocytes % 4.5 Eosinophils % 0.1 Basophils % 0.1 Nucleated RBC % 0 PT with INR 24.60 H INR 2.07 H PTT (Actin FS) 43.0 H VBG pH POC VBG pCO2 POC VBG pO2 VBG HCO3 VBG O2 Sat (Randi) VBG Base Excess Sodium 132 L Potassium 4.3 Chloride 100 Carbon Dioxide 23 Anion Gap 9 BUN 52.3 H Creatinine 2.8 H Est GFR (CKD-EPI)AfAm 32.40 Est GFR (CKD-EPI)NonAf 27.96 Random Glucose 110 H Lactic Acid Calcium 8.3 L Phosphorus Magnesium Total Bilirubin 8.5 H Direct Bilirubin 5.4 H AST 73 H ALT 77 H Alkaline Phosphatase 78 Creatine Kinase Creatine Kinase Index CK-MB (CK-2) Troponin I Total Protein 6.7 Albumin 3.4 TSH Free T4 Urine Color Urine Appearance Urine pH Ur Specific [place] Urine Protein Urine Glucose (UA) Urine Ketones Urine Blood Urine Nitrite Urine Bilirubin Urine Urobilinogen Ur Leukocyte Esterase Urine WBC (Auto) Urine RBC (Auto) Urine Casts (Auto) U Epithel Cells (Auto) Urine Bacteria (Auto) Urine Yeast (Auto) Ur Random Creatinine Ur Random Sodium Ur Random Potassium Ur Random Chloride Random Vancomycin Opiates Screen Methadone Screen Barbiturate Screen Phencyclidine Screen Ur Amphetamines Screen MDMA (Ecstasy) Screen Benzodiazepines Screen Cocaine Screen U Marijuana (THC) Screen HIV 1&2 Antibody Screen HIV P24 Antigen 04/22/19 04/22/19 04/22/19 17:00 17:00 17:00 WBC RBC Hgb Hct MCV MCH MCHC RDW Plt Count MPV Absolute Neuts (auto) Neutrophils % Lymphocytes % Monocytes % Eosinophils % Basophils % Nucleated RBC % PT with INR INR PTT (Actin FS) VBG pH 7.35 POC VBG pCO2 43.1 POC VBG pO2 < 49 H VBG HCO3 23.3 VBG O2 Sat (Randi) 38.4 L VBG Base Excess -1.8 Sodium Potassium Chloride Carbon Dioxide Anion Gap BUN Creatinine Est GFR (CKD-EPI)AfAm Est GFR (CKD-EPI)NonAf Random Glucose Lactic Acid 2.9 H* Calcium Phosphorus Magnesium Total Bilirubin Direct Bilirubin AST ALT Alkaline Phosphatase Creatine Kinase 220 Creatine Kinase Index 1.9 CK-MB (CK-2) 4.3 H Troponin I 0.30 H Total Protein Albumin TSH Free T4 Urine Color Urine Appearance Urine pH Ur Specific [place] Urine Protein Urine Glucose (UA) Urine Ketones Urine Blood Urine Nitrite Urine Bilirubin Urine Urobilinogen Ur Leukocyte Esterase Urine WBC (Auto) Urine RBC (Auto) Urine Casts (Auto) U Epithel Cells (Auto) Urine Bacteria (Auto) Urine Yeast (Auto) Ur Random Creatinine Ur Random Sodium Ur Random Potassium Ur Random Chloride Random Vancomycin Opiates Screen Methadone Screen Barbiturate Screen Phencyclidine Screen Ur Amphetamines Screen MDMA (Ecstasy) Screen Benzodiazepines Screen Cocaine Screen U Marijuana (THC) Screen HIV 1&2 Antibody Screen HIV P24 Antigen 04/22/19 04/22/19 04/23/19 17:27 21:41 00:05 WBC RBC Hgb Hct MCV MCH MCHC RDW Plt Count MPV Absolute Neuts (auto) Neutrophils % Lymphocytes % Monocytes % Eosinophils % Basophils % Nucleated RBC % PT with INR INR PTT (Actin FS) VBG pH POC VBG pCO2 POC VBG pO2 VBG HCO3 VBG O2 Sat (Randi) VBG Base Excess Sodium Potassium Chloride Carbon Dioxide Anion Gap BUN Creatinine Est GFR (CKD-EPI)AfAm Est GFR (CKD-EPI)NonAf Random Glucose Lactic Acid 5.0 H* 5.8 H* Calcium Phosphorus Magnesium Total Bilirubin Direct Bilirubin AST ALT Alkaline Phosphatase Creatine Kinase Creatine Kinase Index CK-MB (CK-2) Troponin I Total Protein Albumin TSH Free T4 Urine Color Dk yellow Urine Appearance Cloudy Urine pH 5.0 Ur Specific [place] 1.013 Urine Protein 1+ H Urine Glucose (UA) Negative Urine Ketones Negative Urine Blood 2+ H Urine Nitrite Negative Urine Bilirubin 1+ H Urine Urobilinogen 0.2 Ur Leukocyte Esterase 2+ H Urine WBC (Auto) 42 Urine RBC (Auto) 6 Urine Casts (Auto) 3 U Epithel Cells (Auto) 1.0 Urine Bacteria (Auto) 4356.8 Urine Yeast (Auto) Positive Ur Random Creatinine Ur Random Sodium Ur Random Potassium Ur Random Chloride Random Vancomycin Opiates Screen Methadone Screen Barbiturate Screen Phencyclidine Screen Ur Amphetamines Screen MDMA (Ecstasy) Screen Benzodiazepines Screen Cocaine Screen U Marijuana (THC) Screen HIV 1&2 Antibody Screen HIV P24 Antigen 04/23/19 04/23/19 04/23/19 00:15 00:15 05:40 WBC 15.1 H RBC 4.14 Hgb 12.2 Hct 36.1 MCV 87.3 MCH 29.5 MCHC 33.8 RDW 14.5 Plt Count 48 L D MPV 11.1 Absolute Neuts (auto) 14.0 H Neutrophils % 92.7 H Lymphocytes % 4.1 L Monocytes % 2.9 L Eosinophils % 0.2 D Basophils % 0.1 Nucleated RBC % 0 PT with INR INR PTT (Actin FS) VBG pH POC VBG pCO2 POC VBG pO2 VBG HCO3 VBG O2 Sat (Randi) VBG Base Excess Sodium Potassium Chloride Carbon Dioxide Anion Gap BUN Creatinine Est GFR (CKD-EPI)AfAm Est GFR (CKD-EPI)NonAf Random Glucose Lactic Acid Calcium Phosphorus Magnesium Total Bilirubin Direct Bilirubin 5.9 H AST ALT Alkaline Phosphatase Creatine Kinase Creatine Kinase Index CK-MB (CK-2) Troponin I 0.43 H Total Protein Albumin TSH Free T4 Urine Color Urine Appearance Urine pH Ur Specific [place] Urine Protein Urine Glucose (UA) Urine Ketones Urine Blood Urine Nitrite Urine Bilirubin Urine Urobilinogen Ur Leukocyte Esterase Urine WBC (Auto) Urine RBC (Auto) Urine Casts (Auto) U Epithel Cells (Auto) Urine Bacteria (Auto) Urine Yeast (Auto) Ur Random Creatinine Ur Random Sodium Ur Random Potassium Ur Random Chloride Random Vancomycin Opiates Screen Methadone Screen Barbiturate Screen Phencyclidine Screen Ur Amphetamines Screen MDMA (Ecstasy) Screen Benzodiazepines Screen Cocaine Screen U Marijuana (THC) Screen HIV 1&2 Antibody Screen Negative HIV P24 Antigen Negative 04/23/19 04/23/19 04/23/19 05:40 05:40 05:40 WBC RBC Hgb Hct MCV MCH MCHC RDW Plt Count MPV Absolute Neuts (auto) Neutrophils % Lymphocytes % Monocytes % Eosinophils % Basophils % Nucleated RBC % PT with INR 25.10 H INR 2.11 H PTT (Actin FS) VBG pH POC VBG pCO2 POC VBG pO2 VBG HCO3 VBG O2 Sat (Randi) VBG Base Excess Sodium 136 Potassium 3.8 Chloride 104 Carbon Dioxide 19 L Anion Gap 13 BUN 46.8 H Creatinine 2.3 H Est GFR (CKD-EPI)AfAm 41.10 Est GFR (CKD-EPI)NonAf 35.46 Random Glucose 153 H Lactic Acid 5.0 H* Calcium 7.7 L Phosphorus 4.0 Magnesium 1.6 L Total Bilirubin 7.6 H Direct Bilirubin 6.1 H AST 69 H ALT 75 H Alkaline Phosphatase 128 H Creatine Kinase Creatine Kinase Index CK-MB (CK-2) Troponin I 0.58 H Total Protein 5.7 L Albumin 3.0 L TSH 2.04 Free T4 1.51 H Urine Color Urine Appearance Urine pH Ur Specific [place] Urine Protein Urine Glucose (UA) Urine Ketones Urine Blood Urine Nitrite Urine Bilirubin Urine Urobilinogen Ur Leukocyte Esterase Urine WBC (Auto) Urine RBC (Auto) Urine Casts (Auto) U Epithel Cells (Auto) Urine Bacteria (Auto) Urine Yeast (Auto) Ur Random Creatinine Ur Random Sodium Ur Random Potassium Ur Random Chloride Random Vancomycin Opiates Screen Methadone Screen Barbiturate Screen Phencyclidine Screen Ur Amphetamines Screen MDMA (Ecstasy) Screen Benzodiazepines Screen Cocaine Screen U Marijuana (THC) Screen HIV 1&2 Antibody Screen HIV P24 Antigen 04/23/19 04/23/19 04/23/19 05:40 10:00 10:00 WBC RBC Hgb Hct MCV MCH MCHC RDW Plt Count MPV Absolute Neuts (auto) Neutrophils % Lymphocytes % Monocytes % Eosinophils % Basophils % Nucleated RBC % PT with INR INR PTT (Actin FS) VBG pH POC VBG pCO2 POC VBG pO2 VBG HCO3 VBG O2 Sat (Randi) VBG Base Excess Sodium Potassium Chloride Carbon Dioxide Anion Gap BUN Creatinine Est GFR (CKD-EPI)AfAm Est GFR (CKD-EPI)NonAf Random Glucose Lactic Acid Calcium Phosphorus Magnesium Total Bilirubin Direct Bilirubin AST ALT Alkaline Phosphatase Creatine Kinase Creatine Kinase Index CK-MB (CK-2) Troponin I Total Protein Albumin TSH Free T4 Urine Color Urine Appearance Urine pH Ur Specific [place] Urine Protein Urine Glucose (UA) Urine Ketones Urine Blood Urine Nitrite Urine Bilirubin Urine Urobilinogen Ur Leukocyte Esterase Urine WBC (Auto) Urine RBC (Auto) Urine Casts (Auto) U Epithel Cells (Auto) Urine Bacteria (Auto) Urine Yeast (Auto) Ur Random Creatinine 30.0 Ur Random Sodium 11 L Ur Random Potassium 16.0 L Ur Random Chloride < 11 L Random Vancomycin 9.9 L Opiates Screen Methadone Screen Barbiturate Screen Phencyclidine Screen Ur Amphetamines Screen MDMA (Ecstasy) Screen Benzodiazepines Screen Cocaine Screen U Marijuana (THC) Screen HIV 1&2 Antibody Screen HIV P24 Antigen 04/23/19 04/23/19 10:04 10:30 WBC RBC Hgb Hct MCV MCH MCHC RDW Plt Count MPV Absolute Neuts (auto) Neutrophils % Lymphocytes % Monocytes % Eosinophils % Basophils % Nucleated RBC % PT with INR INR PTT (Actin FS) VBG pH POC VBG pCO2 POC VBG pO2 VBG HCO3 VBG O2 Sat (Randi) VBG Base Excess Sodium Potassium Chloride Carbon Dioxide Anion Gap BUN Creatinine Est GFR (CKD-EPI)AfAm Est GFR (CKD-EPI)NonAf Random Glucose Lactic Acid 4.1 H* Calcium Phosphorus Magnesium Total Bilirubin Direct Bilirubin AST ALT Alkaline Phosphatase Creatine Kinase Creatine Kinase Index CK-MB (CK-2) Troponin I Total Protein Albumin TSH Free T4 Urine Color Urine Appearance Urine pH Ur Specific [place] Urine Protein Urine Glucose (UA) Urine Ketones Urine Blood Urine Nitrite Urine Bilirubin Urine Urobilinogen Ur Leukocyte Esterase Urine WBC (Auto) Urine RBC (Auto) Urine Casts (Auto) U Epithel Cells (Auto) Urine Bacteria (Auto) Urine Yeast (Auto) Ur Random Creatinine Ur Random Sodium Ur Random Potassium Ur Random Chloride Random Vancomycin Opiates Screen Negative Methadone Screen Negative Barbiturate Screen Negative Phencyclidine Screen Negative Ur Amphetamines Screen Negative MDMA (Ecstasy) Screen Negative Benzodiazepines Screen Negative Cocaine Screen Negative U Marijuana (THC) Screen Negative HIV 1&2 Antibody Screen HIV P24 Antigen IMP: Septic Shock suspected from a Source History of Hepatitis B JEFF Hepatic granuloma LLL atelectasis Urinary retention Hyperbilirubin R/O Malaria Thrombocytopenia Concern for Acute on Chronic liver failure CPS: 9 MELD: 31 PLAN: Continue IVF ABX per ID Add Vasopressin Add Hydrocortosone & Fludrocortisone O2 as needed Strict I & O Monitor coagulation parameters Check and follow Serology Follow CVP Malaria screen Check ECHO PO as tolerated A call will be made to [facility] for transfer to tertiary care for suspected acute on chronic liver failure Dr Vanegas Critical care time spent in reviewing chart, evaluating patient and formulating plan - 36 minutes.
--- NOTE | 2019-04-23 12:40 | PN ---
Physical Exam: SUBJECTIVE: Patient seen and examined at bedside in the ICU. A&Ox3. Denies chest pain, shortness of breath. OBJECTIVE: Vital Signs Period Temp Pulse Resp BP Sys/Paez Pulse Ox Last 24 Hr 97.9 F-103.4 F 82-120 10-38 75-113/40-78 94-100 GENERAL: The patient is awake, alert, and fully oriented, in no acute distress. Mildly diaphoretic. HEAD: Normal with no signs of trauma. EYES: PERRL, extraocular movements intact, conjunctiva clear. No ptosis. Scleral icterus. No pallor. ENT: Ears normal, nares patent, oropharynx clear without exudates, moist mucous membranes. NECK: Trachea midline, full range of motion, supple. LUNGS: Breath sounds equal, clear to auscultation bilaterally, no wheezes, no crackles, no accessory muscle use. HEART: Tachycardia, S1, S2 without murmur, rub or gallop. ABDOMEN: Soft, distended, mild diffuse TTP no guarding, no rebound. EXTREMITIES: 2+ pulses, warm, well-perfused, no edema. No LE tenderness. NEUROLOGICAL: Cranial nerves II through XII grossly intact. Normal speech, gait not observed. PSYCH: Normal mood, normal affect. SKIN: Warm, normal turgor, no rashes or lesions noted Laboratory Results - last 24 hr 04/22/19 04/22/19 04/22/19 17:00 17:00 17:00 WBC 14.6 H RBC 4.75 Hgb 14.0 Hct 42.3 MCV 89.0 MCH 29.4 MCHC 33.1 RDW 14.5 Plt Count 74 L MPV 10.6 Absolute Neuts (auto) 13.3 H Neutrophils % 90.9 H Lymphocytes % 4.4 L Monocytes % 4.5 Eosinophils % 0.1 Basophils % 0.1 Nucleated RBC % 0 PT with INR 24.60 H INR 2.07 H PTT (Actin FS) 43.0 H VBG pH POC VBG pCO2 POC VBG pO2 VBG HCO3 VBG O2 Sat (Randi) VBG Base Excess Sodium 132 L Potassium 4.3 Chloride 100 Carbon Dioxide 23 Anion Gap 9 BUN 52.3 H Creatinine 2.8 H Est GFR (CKD-EPI)AfAm 32.40 Est GFR (CKD-EPI)NonAf 27.96 Random Glucose 110 H Lactic Acid Calcium 8.3 L Phosphorus Magnesium Total Bilirubin 8.5 H Direct Bilirubin 5.4 H AST 73 H ALT 77 H Alkaline Phosphatase 78 Creatine Kinase Creatine Kinase Index CK-MB (CK-2) Troponin I Total Protein 6.7 Albumin 3.4 TSH Free T4 Urine Color Urine Appearance Urine pH Ur Specific Moffat Urine Protein Urine Glucose (UA) Urine Ketones Urine Blood Urine Nitrite Urine Bilirubin Urine Urobilinogen Ur Leukocyte Esterase Urine WBC (Auto) Urine RBC (Auto) Urine Casts (Auto) U Epithel Cells (Auto) Urine Bacteria (Auto) Urine Yeast (Auto) Ur Random Creatinine Ur Random Sodium Ur Random Potassium Ur Random Chloride Random Vancomycin Opiates Screen Methadone Screen Barbiturate Screen Phencyclidine Screen Ur Amphetamines Screen MDMA (Ecstasy) Screen Benzodiazepines Screen Cocaine Screen U Marijuana (THC) Screen HIV 1&2 Antibody Screen HIV P24 Antigen 04/22/19 04/22/19 04/22/19 17:00 17:00 17:00 WBC RBC Hgb Hct MCV MCH MCHC RDW Plt Count MPV Absolute Neuts (auto) Neutrophils % Lymphocytes % Monocytes % Eosinophils % Basophils % Nucleated RBC % PT with INR INR PTT (Actin FS) VBG pH 7.35 POC VBG pCO2 43.1 POC VBG pO2 < 49 H VBG HCO3 23.3 VBG O2 Sat (Randi) 38.4 L VBG Base Excess -1.8 Sodium Potassium Chloride Carbon Dioxide Anion Gap BUN Creatinine Est GFR (CKD-EPI)AfAm Est GFR (CKD-EPI)NonAf Random Glucose Lactic Acid 2.9 H* Calcium Phosphorus Magnesium Total Bilirubin Direct Bilirubin AST ALT Alkaline Phosphatase Creatine Kinase 220 Creatine Kinase Index 1.9 CK-MB (CK-2) 4.3 H Troponin I 0.30 H Total Protein Albumin TSH Free T4 Urine Color Urine Appearance Urine pH Ur Specific Moffat Urine Protein Urine Glucose (UA) Urine Ketones Urine Blood Urine Nitrite Urine Bilirubin Urine Urobilinogen Ur Leukocyte Esterase Urine WBC (Auto) Urine RBC (Auto) Urine Casts (Auto) U Epithel Cells (Auto) Urine Bacteria (Auto) Urine Yeast (Auto) Ur Random Creatinine Ur Random Sodium Ur Random Potassium Ur Random Chloride Random Vancomycin Opiates Screen Methadone Screen Barbiturate Screen Phencyclidine Screen Ur Amphetamines Screen MDMA (Ecstasy) Screen Benzodiazepines Screen Cocaine Screen U Marijuana (THC) Screen HIV 1&2 Antibody Screen HIV P24 Antigen 1004/22/19 04/23/19 17:27 21:41 00:05 WBC RBC Hgb Hct MCV MCH MCHC RDW Plt Count MPV Absolute Neuts (auto) Neutrophils % Lymphocytes % Monocytes % Eosinophils % Basophils % Nucleated RBC % PT with INR INR PTT (Actin FS) VBG pH POC VBG pCO2 POC VBG pO2 VBG HCO3 VBG O2 Sat (Randi) VBG Base Excess Sodium Potassium Chloride Carbon Dioxide Anion Gap BUN Creatinine Est GFR (CKD-EPI)AfAm Est GFR (CKD-EPI)NonAf Random Glucose Lactic Acid 5.0 H* 5.8 H* Calcium Phosphorus Magnesium Total Bilirubin Direct Bilirubin AST ALT Alkaline Phosphatase Creatine Kinase Creatine Kinase Index CK-MB (CK-2) Troponin I Total Protein Albumin TSH Free T4 Urine Color Dk yellow Urine Appearance Cloudy Urine pH 5.0 Ur Specific Moffat 1.013 Urine Protein 1+ H Urine Glucose (UA) Negative Urine Ketones Negative Urine Blood 2+ H Urine Nitrite Negative Urine Bilirubin 1+ H Urine Urobilinogen 0.2 Ur Leukocyte Esterase 2+ H Urine WBC (Auto) 42 Urine RBC (Auto) 6 Urine Casts (Auto) 3 U Epithel Cells (Auto) 1.0 Urine Bacteria (Auto) 4356.8 Urine Yeast (Auto) Positive Ur Random Creatinine Ur Random Sodium Ur Random Potassium Ur Random Chloride Random Vancomycin Opiates Screen Methadone Screen Barbiturate Screen Phencyclidine Screen Ur Amphetamines Screen MDMA (Ecstasy) Screen Benzodiazepines Screen Cocaine Screen U Marijuana (THC) Screen HIV 1&2 Antibody Screen HIV P24 Antigen 04/23/19 04/23/19 04/23/19 00:15 00:15 05:40 WBC 15.1 H RBC 4.14 Hgb 12.2 Hct 36.1 MCV 87.3 MCH 29.5 MCHC 33.8 RDW 14.5 Plt Count 48 L D MPV 11.1 Absolute Neuts (auto) 14.0 H Neutrophils % 92.7 H Lymphocytes % 4.1 L Monocytes % 2.9 L Eosinophils % 0.2 D Basophils % 0.1 Nucleated RBC % 0 PT with INR INR PTT (Actin FS) VBG pH POC VBG pCO2 POC VBG pO2 VBG HCO3 VBG O2 Sat (Randi) VBG Base Excess Sodium Potassium Chloride Carbon Dioxide Anion Gap BUN Creatinine Est GFR (CKD-EPI)AfAm Est GFR (CKD-EPI)NonAf Random Glucose Lactic Acid Calcium Phosphorus Magnesium Total Bilirubin Direct Bilirubin 5.9 H AST ALT Alkaline Phosphatase Creatine Kinase Creatine Kinase Index CK-MB (CK-2) Troponin I 0.43 H Total Protein Albumin TSH Free T4 Urine Color Urine Appearance Urine pH Ur Specific Moffat Urine Protein Urine Glucose (UA) Urine Ketones Urine Blood Urine Nitrite Urine Bilirubin Urine Urobilinogen Ur Leukocyte Esterase Urine WBC (Auto) Urine RBC (Auto) Urine Casts (Auto) U Epithel Cells (Auto) Urine Bacteria (Auto) Urine Yeast (Auto) Ur Random Creatinine Ur Random Sodium Ur Random Potassium Ur Random Chloride Random Vancomycin Opiates Screen Methadone Screen Barbiturate Screen Phencyclidine Screen Ur Amphetamines Screen MDMA (Ecstasy) Screen Benzodiazepines Screen Cocaine Screen U Marijuana (THC) Screen HIV 1&2 Antibody Screen Negative HIV P24 Antigen Negative 04/23/19 04/23/19 04/23/19 05:40 05:40 05:40 WBC RBC Hgb Hct MCV MCH MCHC RDW Plt Count MPV Absolute Neuts (auto) Neutrophils % Lymphocytes % Monocytes % Eosinophils % Basophils % Nucleated RBC % PT with INR 25.10 H INR 2.11 H PTT (Actin FS) VBG pH POC VBG pCO2 POC VBG pO2 VBG HCO3 VBG O2 Sat (Randi) VBG Base Excess Sodium 136 Potassium 3.8 Chloride 104 Carbon Dioxide 19 L Anion Gap 13 BUN 46.8 H Creatinine 2.3 H Est GFR (CKD-EPI)AfAm 41.10 Est GFR (CKD-EPI)NonAf 35.46 Random Glucose 153 H Lactic Acid 5.0 H* Calcium 7.7 L Phosphorus 4.0 Magnesium 1.6 L Total Bilirubin 7.6 H Direct Bilirubin 6.1 H AST 69 H ALT 75 H Alkaline Phosphatase 128 H Creatine Kinase Creatine Kinase Index CK-MB (CK-2) Troponin I 0.58 H Total Protein 5.7 L Albumin 3.0 L TSH 2.04 Free T4 1.51 H Urine Color Urine Appearance Urine pH Ur Specific Moffat Urine Protein Urine Glucose (UA) Urine Ketones Urine Blood Urine Nitrite Urine Bilirubin Urine Urobilinogen Ur Leukocyte Esterase Urine WBC (Auto) Urine RBC (Auto) Urine Casts (Auto) U Epithel Cells (Auto) Urine Bacteria (Auto) Urine Yeast (Auto) Ur Random Creatinine Ur Random Sodium Ur Random Potassium Ur Random Chloride Random Vancomycin Opiates Screen Methadone Screen Barbiturate Screen Phencyclidine Screen Ur Amphetamines Screen MDMA (Ecstasy) Screen Benzodiazepines Screen Cocaine Screen U Marijuana (THC) Screen HIV 1&2 Antibody Screen HIV P24 Antigen 04/23/19 04/23/19 04/23/19 05:40 10:00 10:00 WBC RBC Hgb Hct MCV MCH MCHC RDW Plt Count MPV Absolute Neuts (auto) Neutrophils % Lymphocytes % Monocytes % Eosinophils % Basophils % Nucleated RBC % PT with INR INR PTT (Actin FS) VBG pH POC VBG pCO2 POC VBG pO2 VBG HCO3 VBG O2 Sat (Randi) VBG Base Excess Sodium Potassium Chloride Carbon Dioxide Anion Gap BUN Creatinine Est GFR (CKD-EPI)AfAm Est GFR (CKD-EPI)NonAf Random Glucose Lactic Acid Calcium Phosphorus Magnesium Total Bilirubin Direct Bilirubin AST ALT Alkaline Phosphatase Creatine Kinase Creatine Kinase Index CK-MB (CK-2) Troponin I Total Protein Albumin TSH Free T4 Urine Color Urine Appearance Urine pH Ur Specific Moffat Urine Protein Urine Glucose (UA) Urine Ketones Urine Blood Urine Nitrite Urine Bilirubin Urine Urobilinogen Ur Leukocyte Esterase Urine WBC (Auto) Urine RBC (Auto) Urine Casts (Auto) U Epithel Cells (Auto) Urine Bacteria (Auto) Urine Yeast (Auto) Ur Random Creatinine 30.0 Ur Random Sodium 11 L Ur Random Potassium 16.0 L Ur Random Chloride < 11 L Random Vancomycin 9.9 L Opiates Screen Methadone Screen Barbiturate Screen Phencyclidine Screen Ur Amphetamines Screen MDMA (Ecstasy) Screen Benzodiazepines Screen Cocaine Screen U Marijuana (THC) Screen HIV 1&2 Antibody Screen HIV P24 Antigen 04/23/19 04/23/19 10:04 10:30 WBC RBC Hgb Hct MCV MCH MCHC RDW Plt Count MPV Absolute Neuts (auto) Neutrophils % Lymphocytes % Monocytes % Eosinophils % Basophils % Nucleated RBC % PT with INR INR PTT (Actin FS) VBG pH POC VBG pCO2 POC VBG pO2 VBG HCO3 VBG O2 Sat (Randi) VBG Base Excess Sodium Potassium Chloride Carbon Dioxide Anion Gap BUN Creatinine Est GFR (CKD-EPI)AfAm Est GFR (CKD-EPI)NonAf Random Glucose Lactic Acid 4.1 H* Calcium Phosphorus Magnesium Total Bilirubin Direct Bilirubin AST ALT Alkaline Phosphatase Creatine Kinase Creatine Kinase Index CK-MB (CK-2) Troponin I Total Protein Albumin TSH Free T4 Urine Color Urine Appearance Urine pH Ur Specific Moffat Urine Protein Urine Glucose (UA) Urine Ketones Urine Blood Urine Nitrite Urine Bilirubin Urine Urobilinogen Ur Leukocyte Esterase Urine WBC (Auto) Urine RBC (Auto) Urine Casts (Auto) U Epithel Cells (Auto) Urine Bacteria (Auto) Urine Yeast (Auto) Ur Random Creatinine Ur Random Sodium Ur Random Potassium Ur Random Chloride Random Vancomycin Opiates Screen Negative Methadone Screen Negative Barbiturate Screen Negative Phencyclidine Screen Negative Ur Amphetamines Screen Negative MDMA (Ecstasy) Screen Negative Benzodiazepines Screen Negative Cocaine Screen Negative U Marijuana (THC) Screen Negative HIV 1&2 Antibody Screen HIV P24 Antigen Active Medications Generic Name Dose Route Start Last Admin Trade Name Freq PRN Reason Stop Dose Admin Chlorhexidine Gluconate 1 applic 04/22/19 22:00 Hibiclens For Decolonization - TP HS JOHNY Fludrocortisone Acetate 0.05 mg 04/23/19 10:00 Florinef - PO 04/29/19 10:00 DAILY JOHNY Lactated Ringer's 1,000 ml in 1,000 mls @ 125 mls/hr 04/23/19 00:57 04/23/19 07:53 Lactated Ringers Solution IV 125 mls/hr ASDIR JOHNY Administration Norepinephrine Bitartrate 8, 500 mls @ 112.5 mls/hr 04/23/19 03:45 04/23/19 07:30 000 mcg/ Dextrose IV 25.01 mcg/min TITR JOHNY 93.8 mls/hr Administration Protocol 30 MCG/MIN Vasopressin 50 units/ Sodium 100 mls @ 4 mls/hr 04/23/19 10:45 04/23/19 12:15 Chloride IVPB 2 units/hr ASDIR JOHNY 4 mls/hr Administration Protocol 2 UNITS/HR Meropenem 1 gm/ Dextrose 100 mls @ 200 mls/hr 04/23/19 11:30 04/23/19 11:38 IVPB 200 mls/hr Q8H-IV JOHNY Administration Caspofungin 70 mg/ Sodium 250 mls @ 250 mls/hr 04/23/19 13:00 04/23/19 12:31 Chloride IVPB 04/23/19 13:59 250 mls/hr ONCE ONE Administration Melatonin 5 mg 04/23/19 01:05 Melatonin PO HS PRN INSOMNIA Methylprednisolone Sodium Succinate 50 mg 04/23/19 12:00 04/23/19 12:16 Solu-Medrol - IVPUSH 50 mg Q6H-IV JOHNY Administration Mupirocin 1 applic 04/22/19 22:00 04/23/19 10:08 Bactroban Ointment (For Decolonization) - NS 04/27/19 21:59 1 applic BID JOHNY Administration ASSESSMENT/PLAN: 33 y/o M from [facility] with PMH Chronic Hep B, urethral strictures who presented to the ED for three day hx hematuria and chills. Per pt, on Friday, he noticed that he had increased myalgias, weakness, and chills. ICU consulted for fluid- resistant hypotension. #Neuro -AAO x 3, neuro intact #ID R/o septic shock -may be 2/2 UTI or pyelo as pt with increased urinary stasis, retention. +UA. will r/o alternate etiologies such as PNA, endemic conditions to [facility] such as dengue fever, leptospirosis -s/p vanc, zosyn in ED. fluconazole x 1 d/t UA + yeast -f/u blood cx, ucx, sputum cx -f/u lactic. initial 2.9 > 5.0 . will bolus additional 1L -requiring pressor support. started on levophed gtt . MAP > 65 -start vasopressin -trend CVP. give IVF accordingly -c/w zosyn 3.375 g IVPB q8h. renally dosed -c/w IV LR 125 cc/hr -ID consult: Dr. Peterson, Abx per ID -Uro consult: Dr. Santana. 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 determine whether stone, CBD dilation -GI: Dr. Garza -CPS 9, MELD 31 Transaminitis -may be 2/2 hypotension -also w/ hx of ?chronic Hep B -f/u Hep panel, HIV Thrombocytopenia -possible 2/2 cirrhosis. also w/ splenomegaly likely platelet sequestration -f/u hep C, HIV testing -c/t trend -avoid chemical PPX for now Cirrhosis -as young, will check for A1AT, autoimmune - anti-smooth m Ab, utox denies significant alcohol use -f/u INR ?Hepatic granuloma -seen on CTAP. may be 2/2 sarcoid, autoimmune, parasitic infection, Tb -f/u anti-smooth m Ab, AFB #Cardio Tropinemia possible 2/2 demand -initial trop 0.30, c/t trend -f/u ECHO -Cardio consult: Dr. Martin #Resp -supplemental O2 as needed #Renal JEFF vs. JEFF on CKD -may have renal hypoperfusion 2/2 cirrhosis -f/u renal, bladder sono -c/w IVF #Lines/tubes -L IJ placed (04/22) #F/E/N IV LR 125 cc/hr continue to follow lytes NPO, advance diet as tolerates strict I/O #PPX DVT: SCD's. w/ thrombocytopenia Dispo: transfer to [facility], accepted by Dr. Chaudhari for suspected acute on chronic liver failure Chris Smith MD PGY-1, Critical Care/ICU [phone] Visit type - Emergency Visit Emergency Visit: Yes ED Registration Date: 04/22/19 Care time: The patient presented to the Emergency Department on the above date and was hospitalized for further evaluation of their emergent condition. - New Patient This patient is new to me today: No - Critical Care Critical Care patient: Yes Total Critical Care Time (in minutes): 35 Critical Care Statement: The care of this patient involved high complexity decision making to prevent further life threatening deterioration of the patient 's condition and/or to evaluate & treat vital organ system(s) failure or risk of failure. ATTENDING PHYSICIAN STATEMENT I saw and evaluated the patient. I reviewed the resident's note and discussed the case with the resident. I agree with the resident's findings and plan as documented. SUBJECTIVE: OBJECTIVE: ASSESSMENT AND PLAN:
[2019-04-23] MEDS ORDERED: CASPOFUNGIN ACETATE 70 MG in SODIUM CHLORIDE 250 ML IVPB ONE (13:00)
--- NOTE | 2019-04-23 14:04 | PN ---
<Micha Torres - Last Filed: 04/23/19 18:39> Physical Exam: SUBJECTIVE: Pt reports having his fevers start the night on a day after self- catherization was performed in the morning. Pt denies any prolonged outside travels or insect bites. Pt's care fragmented due to living in [facility] and here for seminary boarding. Pt showed package of Zithromax at bedside for which he took prior to this hospitalization which was prescribed by a doctor in [facility]. OBJECTIVE: Vital Signs Period Temp Pulse Resp BP Sys/Paez Pulse Ox Last 24 Hr 97.9 F-103.4 F 82-120 10-38 75-113/40-78 94-100 GENERAL: The patient is awake, alert, and fully oriented, in no acute distress. HEENT: sclera icteric, MMM LUNGS: CTA bilaterally, no wheezes, no crackles, no accessory muscle use. HEART: Regular rate and rhythm, S1, S2 without murmur ABDOMEN: Soft, NT/ND, hypoactive bowel sounds, no guarding, no nodularity appreciated on liver palpaton EXTREMITIES: 2+ pulses, warm, well-perfused, no edema. PSYCH: Normal mood, normal affect. SKIN: Warm, dry, jaundiced mucosa Laboratory Results - last 24 hr 04/22/19 04/22/19 04/22/19 17:00 17:00 17:00 WBC 14.6 H RBC 4.75 Hgb 14.0 Hct 42.3 MCV 89.0 MCH 29.4 MCHC 33.1 RDW 14.5 Plt Count 74 L MPV 10.6 Absolute Neuts (auto) 13.3 H Neutrophils % 90.9 H Lymphocytes % 4.4 L Monocytes % 4.5 Eosinophils % 0.1 Basophils % 0.1 Nucleated RBC % 0 ESR PT with INR 24.60 H INR 2.07 H PTT (Actin FS) 43.0 H VBG pH POC VBG pCO2 POC VBG pO2 VBG HCO3 VBG O2 Sat (Randi) VBG Base Excess Sodium 132 L Potassium 4.3 Chloride 100 Carbon Dioxide 23 Anion Gap 9 BUN 52.3 H Creatinine 2.8 H Est GFR (CKD-EPI)AfAm 32.40 Est GFR (CKD-EPI)NonAf 27.96 Random Glucose 110 H Lactic Acid Calcium 8.3 L Phosphorus Magnesium Total Bilirubin 8.5 H Direct Bilirubin 5.4 H AST 73 H ALT 77 H Alkaline Phosphatase 78 Creatine Kinase Creatine Kinase Index CK-MB (CK-2) Troponin I Total Protein 6.7 Albumin 3.4 TSH Free T4 Urine Color Urine Appearance Urine pH Ur Specific [place] Urine Protein Urine Glucose (UA) Urine Ketones Urine Blood Urine Nitrite Urine Bilirubin Urine Urobilinogen Ur Leukocyte Esterase Urine WBC (Auto) Urine RBC (Auto) Urine Casts (Auto) U Epithel Cells (Auto) Urine Bacteria (Auto) Urine Yeast (Auto) Ur Random Creatinine Ur Random Sodium Ur Random Potassium Ur Random Chloride Random Vancomycin Opiates Screen Methadone Screen Barbiturate Screen Phencyclidine Screen Ur Amphetamines Screen MDMA (Ecstasy) Screen Benzodiazepines Screen Cocaine Screen U Marijuana (THC) Screen HIV 1&2 Antibody Screen HIV P24 Antigen 04/22/19 04/22/19 04/22/19 17:00 17:00 17:00 WBC RBC Hgb Hct MCV MCH MCHC RDW Plt Count MPV Absolute Neuts (auto) Neutrophils % Lymphocytes % Monocytes % Eosinophils % Basophils % Nucleated RBC % ESR PT with INR INR PTT (Actin FS) VBG pH 7.35 POC VBG pCO2 43.1 POC VBG pO2 < 49 H VBG HCO3 23.3 VBG O2 Sat (Randi) 38.4 L VBG Base Excess -1.8 Sodium Potassium Chloride Carbon Dioxide Anion Gap BUN Creatinine Est GFR (CKD-EPI)AfAm Est GFR (CKD-EPI)NonAf Random Glucose Lactic Acid 2.9 H* Calcium Phosphorus Magnesium Total Bilirubin Direct Bilirubin AST ALT Alkaline Phosphatase Creatine Kinase 220 Creatine Kinase Index 1.9 CK-MB (CK-2) 4.3 H Troponin I 0.30 H Total Protein Albumin TSH Free T4 Urine Color Urine Appearance Urine pH Ur Specific [place] Urine Protein Urine Glucose (UA) Urine Ketones Urine Blood Urine Nitrite Urine Bilirubin Urine Urobilinogen Ur Leukocyte Esterase Urine WBC (Auto) Urine RBC (Auto) Urine Casts (Auto) U Epithel Cells (Auto) Urine Bacteria (Auto) Urine Yeast (Auto) Ur Random Creatinine Ur Random Sodium Ur Random Potassium Ur Random Chloride Random Vancomycin Opiates Screen Methadone Screen Barbiturate Screen Phencyclidine Screen Ur Amphetamines Screen MDMA (Ecstasy) Screen Benzodiazepines Screen Cocaine Screen U Marijuana (THC) Screen HIV 1&2 Antibody Screen HIV P24 Antigen 04/22/19 04/22/19 04/23/19 17:27 21:41 00:05 WBC RBC Hgb Hct MCV MCH MCHC RDW Plt Count MPV Absolute Neuts (auto) Neutrophils % Lymphocytes % Monocytes % Eosinophils % Basophils % Nucleated RBC % ESR PT with INR INR PTT (Actin FS) VBG pH POC VBG pCO2 POC VBG pO2 VBG HCO3 VBG O2 Sat (Randi) VBG Base Excess Sodium Potassium Chloride Carbon Dioxide Anion Gap BUN Creatinine Est GFR (CKD-EPI)AfAm Est GFR (CKD-EPI)NonAf Random Glucose Lactic Acid 5.0 H* 5.8 H* Calcium Phosphorus Magnesium Total Bilirubin Direct Bilirubin AST ALT Alkaline Phosphatase Creatine Kinase Creatine Kinase Index CK-MB (CK-2) Troponin I Total Protein Albumin TSH Free T4 Urine Color Dk yellow Urine Appearance Cloudy Urine pH 5.0 Ur Specific [place] 1.013 Urine Protein 1+ H Urine Glucose (UA) Negative Urine Ketones Negative Urine Blood 2+ H Urine Nitrite Negative Urine Bilirubin 1+ H Urine Urobilinogen 0.2 Ur Leukocyte Esterase 2+ H Urine WBC (Auto) 42 Urine RBC (Auto) 6 Urine Casts (Auto) 3 U Epithel Cells (Auto) 1.0 Urine Bacteria (Auto) 4356.8 Urine Yeast (Auto) Positive Ur Random Creatinine Ur Random Sodium Ur Random Potassium Ur Random Chloride Random Vancomycin Opiates Screen Methadone Screen Barbiturate Screen Phencyclidine Screen Ur Amphetamines Screen MDMA (Ecstasy) Screen Benzodiazepines Screen Cocaine Screen U Marijuana (THC) Screen HIV 1&2 Antibody Screen HIV P24 Antigen 04/23/19 04/23/19 04/23/19 00:15 00:15 05:40 WBC 15.1 H RBC 4.14 Hgb 12.2 Hct 36.1 MCV 87.3 MCH 29.5 MCHC 33.8 RDW 14.5 Plt Count 48 L D MPV 11.1 Absolute Neuts (auto) 14.0 H Neutrophils % 92.7 H Lymphocytes % 4.1 L Monocytes % 2.9 L Eosinophils % 0.2 D Basophils % 0.1 Nucleated RBC % 0 ESR PT with INR INR PTT (Actin FS) VBG pH POC VBG pCO2 POC VBG pO2 VBG HCO3 VBG O2 Sat (Randi) VBG Base Excess Sodium Potassium Chloride Carbon Dioxide Anion Gap BUN Creatinine Est GFR (CKD-EPI)AfAm Est GFR (CKD-EPI)NonAf Random Glucose Lactic Acid Calcium Phosphorus Magnesium Total Bilirubin Direct Bilirubin 5.9 H AST ALT Alkaline Phosphatase Creatine Kinase Creatine Kinase Index CK-MB (CK-2) Troponin I 0.43 H Total Protein Albumin TSH Free T4 Urine Color Urine Appearance Urine pH Ur Specific [place] Urine Protein Urine Glucose (UA) Urine Ketones Urine Blood Urine Nitrite Urine Bilirubin Urine Urobilinogen Ur Leukocyte Esterase Urine WBC (Auto) Urine RBC (Auto) Urine Casts (Auto) U Epithel Cells (Auto) Urine Bacteria (Auto) Urine Yeast (Auto) Ur Random Creatinine Ur Random Sodium Ur Random Potassium Ur Random Chloride Random Vancomycin Opiates Screen Methadone Screen Barbiturate Screen Phencyclidine Screen Ur Amphetamines Screen MDMA (Ecstasy) Screen Benzodiazepines Screen Cocaine Screen U Marijuana (THC) Screen HIV 1&2 Antibody Screen Negative HIV P24 Antigen Negative 04/23/19 04/23/19 04/23/19 05:40 05:40 05:40 WBC RBC Hgb Hct MCV MCH MCHC RDW Plt Count MPV Absolute Neuts (auto) Neutrophils % Lymphocytes % Monocytes % Eosinophils % Basophils % Nucleated RBC % ESR PT with INR 25.10 H INR 2.11 H PTT (Actin FS) VBG pH POC VBG pCO2 POC VBG pO2 VBG HCO3 VBG O2 Sat (Randi) VBG Base Excess Sodium 136 Potassium 3.8 Chloride 104 Carbon Dioxide 19 L Anion Gap 13 BUN 46.8 H Creatinine 2.3 H Est GFR (CKD-EPI)AfAm 41.10 Est GFR (CKD-EPI)NonAf 35.46 Random Glucose 153 H Lactic Acid 5.0 H* Calcium 7.7 L Phosphorus 4.0 Magnesium 1.6 L Total Bilirubin 7.6 H Direct Bilirubin 6.1 H AST 69 H ALT 75 H Alkaline Phosphatase 128 H Creatine Kinase Creatine Kinase Index CK-MB (CK-2) Troponin I 0.58 H Total Protein 5.7 L Albumin 3.0 L TSH 2.04 Free T4 1.51 H Urine Color Urine Appearance Urine pH Ur Specific [place] Urine Protein Urine Glucose (UA) Urine Ketones Urine Blood Urine Nitrite Urine Bilirubin Urine Urobilinogen Ur Leukocyte Esterase Urine WBC (Auto) Urine RBC (Auto) Urine Casts (Auto) U Epithel Cells (Auto) Urine Bacteria (Auto) Urine Yeast (Auto) Ur Random Creatinine Ur Random Sodium Ur Random Potassium Ur Random Chloride Random Vancomycin Opiates Screen Methadone Screen Barbiturate Screen Phencyclidine Screen Ur Amphetamines Screen MDMA (Ecstasy) Screen Benzodiazepines Screen Cocaine Screen U Marijuana (THC) Screen HIV 1&2 Antibody Screen HIV P24 Antigen 04/23/19 04/23/19 04/23/19 05:40 10:00 10:00 WBC RBC Hgb Hct MCV MCH MCHC RDW Plt Count MPV Absolute Neuts (auto) Neutrophils % Lymphocytes % Monocytes % Eosinophils % Basophils % Nucleated RBC % ESR PT with INR INR PTT (Actin FS) VBG pH POC VBG pCO2 POC VBG pO2 VBG HCO3 VBG O2 Sat (Randi) VBG Base Excess Sodium Potassium Chloride Carbon Dioxide Anion Gap BUN Creatinine Est GFR (CKD-EPI)AfAm Est GFR (CKD-EPI)NonAf Random Glucose Lactic Acid Calcium Phosphorus Magnesium Total Bilirubin Direct Bilirubin AST ALT Alkaline Phosphatase Creatine Kinase Creatine Kinase Index CK-MB (CK-2) Troponin I Total Protein Albumin TSH Free T4 Urine Color Urine Appearance Urine pH Ur Specific [place] Urine Protein Urine Glucose (UA) Urine Ketones Urine Blood Urine Nitrite Urine Bilirubin Urine Urobilinogen Ur Leukocyte Esterase Urine WBC (Auto) Urine RBC (Auto) Urine Casts (Auto) U Epithel Cells (Auto) Urine Bacteria (Auto) Urine Yeast (Auto) Ur Random Creatinine 30.0 Ur Random Sodium 11 L Ur Random Potassium 16.0 L Ur Random Chloride < 11 L Random Vancomycin 9.9 L Opiates Screen Methadone Screen Barbiturate Screen Phencyclidine Screen Ur Amphetamines Screen MDMA (Ecstasy) Screen Benzodiazepines Screen Cocaine Screen U Marijuana (THC) Screen HIV 1&2 Antibody Screen HIV P24 Antigen 04/23/19 04/23/19 04/23/19 10:04 10:30 12:16 WBC RBC Hgb Hct MCV MCH MCHC RDW Plt Count MPV Absolute Neuts (auto) Neutrophils % Lymphocytes % Monocytes % Eosinophils % Basophils % Nucleated RBC % ESR PT with INR INR PTT (Actin FS) VBG pH POC VBG pCO2 POC VBG pO2 VBG HCO3 VBG O2 Sat (Randi) VBG Base Excess Sodium Potassium Chloride Carbon Dioxide Anion Gap BUN Creatinine Est GFR (CKD-EPI)AfAm Est GFR (CKD-EPI)NonAf Random Glucose Lactic Acid 4.1 H* Calcium Phosphorus Magnesium Total Bilirubin Direct Bilirubin AST ALT Alkaline Phosphatase Creatine Kinase Creatine Kinase Index CK-MB (CK-2) Troponin I 1.34 H* Total Protein Albumin TSH Free T4 Urine Color Urine Appearance Urine pH Ur Specific [place] Urine Protein Urine Glucose (UA) Urine Ketones Urine Blood Urine Nitrite Urine Bilirubin Urine Urobilinogen Ur Leukocyte Esterase Urine WBC (Auto) Urine RBC (Auto) Urine Casts (Auto) U Epithel Cells (Auto) Urine Bacteria (Auto) Urine Yeast (Auto) Ur Random Creatinine Ur Random Sodium Ur Random Potassium Ur Random Chloride Random Vancomycin Opiates Screen Negative Methadone Screen Negative Barbiturate Screen Negative Phencyclidine Screen Negative Ur Amphetamines Screen Negative MDMA (Ecstasy) Screen Negative Benzodiazepines Screen Negative Cocaine Screen Negative U Marijuana (THC) Screen Negative HIV 1&2 Antibody Screen HIV P24 Antigen 04/23/19 12:16 WBC RBC Hgb Hct MCV MCH MCHC RDW Plt Count MPV Absolute Neuts (auto) Neutrophils % Lymphocytes % Monocytes % Eosinophils % Basophils % Nucleated RBC % ESR 13 H PT with INR INR PTT (Actin FS) VBG pH POC VBG pCO2 POC VBG pO2 VBG HCO3 VBG O2 Sat (Randi) VBG Base Excess Sodium Potassium Chloride Carbon Dioxide Anion Gap BUN Creatinine Est GFR (CKD-EPI)AfAm Est GFR (CKD-EPI)NonAf Random Glucose Lactic Acid Calcium Phosphorus Magnesium Total Bilirubin Direct Bilirubin AST ALT Alkaline Phosphatase Creatine Kinase Creatine Kinase Index CK-MB (CK-2) Troponin I Total Protein Albumin TSH Free T4 Urine Color Urine Appearance Urine pH Ur Specific [place] Urine Protein Urine Glucose (UA) Urine Ketones Urine Blood Urine Nitrite Urine Bilirubin Urine Urobilinogen Ur Leukocyte Esterase Urine WBC (Auto) Urine RBC (Auto) Urine Casts (Auto) U Epithel Cells (Auto) Urine Bacteria (Auto) Urine Yeast (Auto) Ur Random Creatinine Ur Random Sodium Ur Random Potassium Ur Random Chloride Random Vancomycin Opiates Screen Methadone Screen Barbiturate Screen Phencyclidine Screen Ur Amphetamines Screen MDMA (Ecstasy) Screen Benzodiazepines Screen Cocaine Screen U Marijuana (THC) Screen HIV 1&2 Antibody Screen HIV P24 Antigen Active Medications Generic Name Dose Route Start Last Admin Trade Name Freq PRN Reason Stop Dose Admin Chlorhexidine Gluconate 1 applic 04/22/19 22:00 Hibiclens For Decolonization - TP HS JOHNY Fludrocortisone Acetate 0.05 mg 04/23/19 10:00 Florinef - PO 04/29/19 10:00 DAILY JOHNY Lactated Ringer's 1,000 ml in 1,000 mls @ 125 mls/hr 04/23/19 00:57 04/23/19 07:53 Lactated Ringers Solution IV 125 mls/hr ASDIR JOHNY Administration Norepinephrine Bitartrate 8, 500 mls @ 112.5 mls/hr 04/23/19 03:45 04/23/19 07:30 000 mcg/ Dextrose IV 25.01 mcg/min TITR JOHNY 93.8 mls/hr Administration Protocol 30 MCG/MIN Vasopressin 50 units/ Sodium 100 mls @ 4 mls/hr 04/23/19 10:45 04/23/19 12:15 Chloride IVPB 2 units/hr ASDIR JOHNY 4 mls/hr Administration Protocol 2 UNITS/HR Meropenem 1 gm/ Dextrose 100 mls @ 200 mls/hr 04/23/19 11:30 04/23/19 11:38 IVPB 200 mls/hr Q8H-IV JOHNY Administration Melatonin 5 mg 04/23/19 01:05 Melatonin PO HS PRN INSOMNIA Methylprednisolone Sodium Succinate 50 mg 04/23/19 12:00 04/23/19 12:16 Solu-Medrol - IVPUSH 50 mg Q6H-IV JOHNY Administration Mupirocin 1 applic 04/22/19 22:00 04/23/19 10:08 Bactroban Ointment (For Decolonization) - NS 04/27/19 21:59 1 applic BID JOHNY Administration ASSESSMENT/PLAN: Septic Shock 2/2 to urinary tract infection Acute on chronic Liver Failure Hepatic Granuloma Acute kidney insufficiency Type 2 NSTEMI Lactic acidosis History of urinary strictures --Add vasopression and pressor refractory shock treatments --Monitor per ICU --Echocardiogram to follow-up; doubt cardiogenic source --Ordered parasite smears to ro malaria, babesia, anaplasmosis. GC/Chlamydia, HIV negative --F/u cultures and sensitivies --Ordered Quantiferon r/o TB given granuloma --Trend Lactate for treatment guidance --Trend troponin --Antibiotics per ID: Meropenem and antifungals on board (adjust for hepatic failure) --Urology on board given urinary strictures and sepsis --Chids Campos B, MELD 30 --Pt will likely benefit from tertiary care center --Hepatitis panel pending at this time --Rest of mgmt per ICU and consulting specialities FEN: Fluilds: Per CVP goal 8-12 Electrolyte abnormalities: PPX: Dispo: ICU monitoring; pt accepted to [facility] MICU by Dr. Zwien; awaiting transport Case discussed with Dr. Morales and ICU team Micha Torres, DO - IM PGY-3 Visit type - Emergency Visit Emergency Visit: Yes ED Registration Date: 04/22/19 Care time: The patient presented to the Emergency Department on the above date and was hospitalized for further evaluation of their emergent condition. - New Patient This patient is new to me today: Yes Date on this admission: 04/23/19 - Critical Care Critical Care patient: Yes Total Critical Care Time (in minutes): 35 Critical Care Statement: The care of this patient involved high complexity decision making to prevent further life threatening deterioration of the patient 's condition and/or to evaluate & treat vital organ system(s) failure or risk of failure. ATTENDING PHYSICIAN STATEMENT I saw and evaluated the patient. I reviewed the resident's note and discussed the case with the resident. I agree with the resident's findings and plan as documented. SUBJECTIVE: OBJECTIVE: ASSESSMENT AND PLAN: <Eulogio Morales - Last Filed: 05/01/19 10:46> Physical Exam: Seen and examined; independently verified all diagnostic information as well as historical and exam findings as outlined in the resdient note. I agree with their above documentation aside from as is supplemented by myself below. 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 Some B symptoms. Critically ill due to septic shock secondary to unknown organism. 10 sys ROS done and negative aside from HPI VS, labs, imaging reviewed NAD, AAO, resting in bed RRR s1/2 no mgr NT ND +BS CN2-12 wnl, no fnd Normal mood, appropriate behavior Agree with problem list as documented above All microbio and imaging findings reviewed Septic Shock 2/2 to urinary tract infection Acute on chronic Liver Failure Hepatic Granuloma Troponemia Acute kidney insufficiency Type 2 NSTEMI Lactic acidosis History of urinary strictures Given exposure to TB we and complexity of the case considering transfer Continue pressors and fluids and supportive care abx per ID CCM managing as well Appreciate subspecialty support. Trend EKG-consider chagas, etc. Critically ill, 60 minutes spent coordinating care ATTENDING PHYSICIAN STATEMENT I saw and evaluated the patient. I reviewed the resident's note and discussed the case with the resident. I agree with the resident's findings and plan as documented. SUBJECTIVE: OBJECTIVE: ASSESSMENT AND PLAN:
[2019-04-23] MEDS ORDERED: VANCOMYCIN 1 GM in D5W (PRE-DOCKED) 1,000 MG/250 ML IVPB ONE (14:26)
--- NOTE | 2019-04-23 14:31 | EKG ---
Test Reason : Blood Pressure : / mmHG Vent. Rate : 099 BPM Atrial Rate : 099 BPM P-R Int : 144 ms QRS Dur : 090 ms QT Int : 336 ms P-R-T Axes : 049 -08 015 degrees QTc Int : 431 ms POOR DATA QUALITY, INTERPRETATION MAY BE ADVERSELY AFFECTED NORMAL SINUS RHYTHM ST ELEVATION, CONSIDER EARLY REPOLARIZATION, PERICARDITIS, OR INJURY POSSIBLE LEFT ATRIAL ENLARGEMENT NO PREVIOUS ECGS AVAILABLE Confirmed by OBED ESPINO MD ([id number]) on 04/23/2019 2:31:16 PM Referred By: Confirmed By:OBED ESPINO MD
[2019-04-23 14:33] LABS: ANISOCYTOSIS 1+; MACROCYTOSIS 0; PLATELET ESTIMATE DECREASED; TEAR DROP CELLS 1+
--- NOTE | 2019-04-23 14:45 | CON.CARD ---
Consult Consult Specialty:: Cardiology Reason for Consultation:: Positive troponins - History of Present Illness Chief Complaint: Presently no acute distress History of Present Illness: This is a 33 year old male with a PMH of chronic Hep B and urethral strictures ( he self dilates). He presented on 04/22/19 with sepsis from a source. He presented with a 2 day history of generalized malaise, diffuse body aches and fevers. Three days ago, patient had difficulty urinating and dilated himself. The next day, he began experiencing fevers and body aches, accompanied by dysuria. At the ED he received fluids in accordance with sepsis protocol and remained refractory, levophed was started. In ED: WBC-14.6, H/H-14.0/42.3, BUN/cr-52.3/2.8 Mohit-8.5, INR-2.07 LA-2.9>>5.0>>5.8 He was noted to have positive troponins 0.43 and 0.58. He denies cardiac symptoms. Echocardiogram 04/23/18 showed low normal LV function, EF ~45 - 50%, mild MR, mild TR, normal RV function. EKG 04/22/19 NSR at [address] elevation verses early repolarization in the lateral Leads. - Alcohol/Substance Use Hx Alcohol Use: No - Smoking History Smoking history: Never smoked Home Medications - Allergies Allergies/Adverse Reactions: Allergies Allergy/AdvReac Type Severity Reaction Status Date / Time No Known Allergies Allergy Verified 04/22/19 16:38 - Home Medications Home Medications: Ambulatory Orders Azithromycin [Zithromax] 500 mg PO ONCE 04/22/19 Vital Signs: Vital Signs Temperature 99.1 F 04/23/19 12:00 Pulse Rate 92 H 04/23/19 12:15 Respiratory Rate 04/23/19 12:00 Blood Pressure 107/63 04/23/19 12:15 O2 Sat by Pulse Oximetry (%) 96 04/23/19 07:30 Constitutional: Yes: No Distress Eyes: Yes: WNL HENT: Yes: WNL Neck: Yes: WNL Respiratory: Yes: CTA Bilaterally Gastrointestinal: Yes: Soft Cardiovascular: Yes: Regular Rate and Rhythm Heart Sounds: Yes: S1, S2 Edema: No Neurological: Yes: Alert, Oriented - Other Data Labs, Other Data: CBC, BMP 04/23/19 05:40 04/23/19 05:40 INR, PTT INR 2.11 (0.83-1.09) H 04/23/19 05:40 Troponin, BNP 04/22/19 04/23/19 04/23/19 17:00 00:15 05:40 Troponin I 0.30 H 0.43 H 0.58 H 04/23/19 12:16 Troponin I 1.34 H* Troponin, BNP 04/22/19 04/23/19 04/23/19 17:00 00:15 05:40 Troponin I 0.30 H 0.43 H 0.58 H 04/23/19 12:16 Troponin I 1.34 H* Assessment/Plan 33 year old male with a PMH of chronic Hep B and urethral strictures (he self dilates). He presented on 04/22/19 with sepsis from a source. He presented with a 2 day history of generalized malaise, diffuse body aches and fevers. Three days ago, patient had difficulty urinating and dilated himself. The next day, he began experiencing fevers and body aches, accompanied by dysuria. At the ED he received fluids in accordance with sepsis protocol and remained refractory, levophed was started and also on vasopressin. WBC-14.6, H/H-14.0/42.3, BUN/cr-52.3/2.8 Mohit-8.5, INR-2.07 LA-2.9>>5.0>>5.8 positive troponins 0.43 and 0.58. He denies cardiac symptoms. Echocardiogram 04/23/18 showed low normal LV function, EF ~45 - 50%, mild MR, mild TR, normal RV function. EKG 04/22/19 NSR at [address] elevation verses early repolarization in the lateral Leads. Cardiovascular Type 2 myocardial infarction secondary to sepsis, demand ischemia secondary to pressors At this point the treatment is supportive care and to treat the underlying sepsis Would follow troponin trends Follow serial EKG's Wean off pressors as tolerated Keep in a monitored setting Reassess LV function when no longer acutely ill We will follow with you
[2019-04-23 14:49] LABS: ARTERIAL BLD GAS O2 SATURATION 96.5 % (95-98); ARTERIAL BLOOD GAS PCO2 31.2 mmHg (35-45); ARTERIAL BLOOD GAS PO2 91.6 mmHg (80-100); ARTERIAL BLOOD GAS pH 7.41 (7.35-7.45)
[2019-04-23 14:50] LABS: ALLENS TEST POSITIVE
--- NOTE | 2019-04-23 15:11 | CON.GU ---
Consult Consult Specialty:: Referred by:: ICU Reason for Consultation:: urethral stricture - History of Present Illness Chief Complaint: urethral stricture History of Present Illness: 33 year old male recently moved here from [place] who reports a history of urethral strictures. He self dilates every two weeks. He does not have a urologist in the [place]. He is admitted with suspicion of urosepsis. He has been voiding well while in the hospital and has low post voids. - History Source History Provided By: Patient Limitations to Obtaining History: No Limitations - Past Medical History Renal/: Yes: Other (urethral strictures) - Alcohol/Substance Use Hx Alcohol Use: No - Smoking History Smoking history: Never smoked Home Medications - Allergies Allergies/Adverse Reactions: Allergies Allergy/AdvReac Type Severity Reaction Status Date / Time No Known Allergies Allergy Verified 04/22/19 16:38 - Home Medications Home Medications: Ambulatory Orders Azithromycin [Zithromax] 500 mg PO ONCE 04/22/19 Review of Systems - Review of Systems Constitutional: reports: Chills, Fever Genitourinary: reports: No Symptoms Physical Exam- Vital Signs: Vital Signs Temperature 99.1 F 04/23/19 12:00 Pulse Rate 92 H 04/23/19 12:15 Respiratory Rate 19 04/23/19 12:00 Blood Pressure 107/63 04/23/19 12:15 O2 Sat by Pulse Oximetry (%) 96 04/23/19 07:30 Gastrointestinal: Yes: Soft Renal/: No: Bladder Distention, CVA Tenderness - Left, CVA Tenderness - Right , Ramon Present Labs: CBC, BMP 04/23/19 05:40 04/23/19 05:40 Problem List - Problems (1) Urethral stricture in male Assessment/Plan: continue self cath as needed. He is voiding. If he is not emptying well a ramon cath can be placed. He is being transferred to ICU at [facility] and I can follow him there. Code(s): N35.919 - UNSPECIFIED URETHRAL STRICTURE, MALE, UNSPECIFIED SITE
--- NOTE | 2019-04-23 15:23 | CONSULT ---
Consult Consult Specialty:: Nephrology Reason for Consultation:: JEFF - History of Present Illness Chief Complaint: hematuria and fever History of Present Illness: Pt is a 33 year old male with pmhx of hepatitis B diagnosed about 12 years ago and urethral strictures who presents to the ER with hematuria and fevers. He also complains of generalized malaise. I was called to evaluate him for JEFF. He denies history of CKD. He denies nsaid use. He selv catheterizes at home. He last dilated himself on Friday when he had some trouble urinating. He then had hematuria. He was admitted to the ICU for sepsis. He was revered to the ER from urgent care as he was hypotensive. He says that three of his siblings have Hep B. He has never had treatment for it. He recently moved here from [facility]. - History Source History Provided By: Patient, Medical Record - Past Medical History Hepatobiliary: Yes: Hepatitis B Renal/: Yes: Other (urethral strictures) - Alcohol/Substance Use Hx Alcohol Use: No - Smoking History Smoking history: Never smoked Home Medications - Allergies Allergies/Adverse Reactions: Allergies Allergy/AdvReac Type Severity Reaction Status Date / Time No Known Allergies Allergy Verified 04/22/19 16:38 - Home Medications Home Medications: Ambulatory Orders Azithromycin [Zithromax] 500 mg PO ONCE 04/22/19 Family Medical History Other Family History: hepatitis b Review of Systems - Review of Systems Constitutional: reports: Chills, Fever, Malaise Eyes: reports: No Symptoms HENT: reports: No Symptoms Neck: reports: No Symptoms Cardiovascular: reports: No Symptoms Respiratory: reports: No Symptoms Gastrointestinal: reports: No Symptoms Genitourinary: reports: Hematuria Musculoskeletal: reports: No Symptoms Integumentary: reports: No Symptoms Neurological: reports: No Symptoms Endocrine: reports: No Symptoms Hematology/Lymphatic: reports: No Symptoms Psychiatric: reports: No Symptoms Physical Exam Vital Signs: Vital Signs Temperature 99.1 F 04/23/19 12:00 Pulse Rate 92 H 04/23/19 12:15 Respiratory Rate 04/23/19 12:00 Blood Pressure 107/63 04/23/19 12:15 O2 Sat by Pulse Oximetry (%) 96 04/23/19 07:30 Constitutional: Yes: Calm Cardiovascular: Yes: S1, S2 Respiratory: Yes: CTA Bilaterally Gastrointestinal: Yes: Soft Renal/: Yes: WNL Musculoskeletal: Yes: WNL Edema: No Neurological: Yes: Oriented Psychiatric: Yes: Oriented Labs: CBC, BMP 04/23/19 05:40 04/23/19 05:40 Laboratory Tests 04/22/19 04/22/19 04/22/19 17:00 17:00 17:00 WBC 14.6 H Sodium Potassium Creatinine 2.8 H Lactic Acid Total Bilirubin Direct Bilirubin Creatine Kinase 220 Urine Protein Urine Blood Ur Leukocyte Esterase Ur Random Sodium CAMPOS Screen Smooth Musc &TIE TAMPER Intrp 04/22/19 04/23/19 04/23/19 17:27 05:40 05:40 WBC 15.1 H Sodium Potassium Creatinine Lactic Acid Total Bilirubin Direct Bilirubin Creatine Kinase Urine Protein 1+ H Urine Blood 2+ H Ur Leukocyte Esterase 2+ H Ur Random Sodium CAMPOS Screen Smooth Musc &TIE TAMPER Intrp Pending 04/23/19 04/23/19 04/23/19 05:40 05:40 10:00 WBC Sodium 136 Potassium 3.8 Creatinine 2.3 H Lactic Acid 5.0 H* Total Bilirubin 7.6 H Direct Bilirubin 6.1 H Creatine Kinase Urine Protein Urine Blood Ur Leukocyte Esterase Ur Random Sodium 11 L CAMPOS Screen Smooth Musc &TIE TAMPER Intrp 04/23/19 04/23/19 04/23/19 10:04 12:16 14:30 WBC Sodium Potassium Creatinine Lactic Acid 4.1 H* Pending Total Bilirubin Direct Bilirubin Creatine Kinase Urine Protein Urine Blood Ur Leukocyte Esterase Ur Random Sodium CAMPOS Screen Pending Smooth Musc &TIE TAMPER Intrp Imaging - Results Chest X-ray: Report Reviewed Problem List - Problems (1) Hepatitis B Code(s): B19.10 - UNSPECIFIED VIRAL HEPATITIS B WITHOUT HEPATIC COMA (2) JEFF (acute kidney injury) Code(s): N17.9 - ACUTE KIDNEY FAILURE, UNSPECIFIED (3) Abnormal liver function tests Code(s): R94.5 - ABNORMAL RESULTS OF LIVER FUNCTION STUDIES (4) Sepsis Code(s): A41.9 - SEPSIS, UNSPECIFIED ORGANISM Qualifiers: Sepsis type: sepsis due to unspecified organism Sepsis acute organ dysfunction status: with acute organ dysfunction Severe sepsis acute organ dysfunction type: acute renal failure Acute renal failure type: unspecified Severe sepsis shock status: with septic shock Qualified Code(s): A41.9 - Sepsis, unspecified organism; R65.21 - Severe sepsis with septic shock; N17.9 - Acute kidney failure, unspecified (5) UTI (urinary tract infection) Code(s): N39.0 - URINARY TRACT INFECTION, SITE NOT SPECIFIED Qualifiers: Urinary tract infection type: site unspecified Hematuria presence: with hematuria Qualified Code(s): N39.0 - Urinary tract infection, site not specified; R31.9 - Hematuria, unspecified (6) Urethral stricture in male Code(s): N35.919 - UNSPECIFIED URETHRAL STRICTURE, MALE, UNSPECIFIED SITE Assessment/Plan Current Medications Generic Name Dose Route Start Last Admin Trade Name Freq PRN Reason Stop Dose Admin Chlorhexidine Gluconate 1 applic 04/22/19 22:00 Hibiclens For Decolonization - TP HS JOHNY Fludrocortisone Acetate 0.05 mg 04/23/19 10:00 Florinef - PO 04/29/19 10:00 DAILY JOHNY Lactated Ringer's 1,000 ml in 1,000 mls @ 125 mls/hr 04/23/19 00:57 04/23/19 07:53 Lactated Ringers Solution IV 125 mls/hr ASDIR JOHNY Administration Norepinephrine Bitartrate 8, 500 mls @ 112.5 mls/hr 04/23/19 03:45 04/23/19 07:30 000 mcg/ Dextrose IV 25.01 mcg/min TITR OJHNY 93.8 mls/hr Administration Protocol 30 MCG/MIN Vasopressin 50 units/ Sodium 100 mls @ 4 mls/hr 04/23/19 10:45 04/23/19 12:15 Chloride IVPB 2 units/hr ASDIR JOHNY 4 mls/hr Administration Protocol 2 UNITS/HR Meropenem 1 gm/ Dextrose 100 mls @ 200 mls/hr 04/23/19 11:30 04/23/19 11:38 IVPB 200 mls/hr Q8H-IV JOHNY Administration Melatonin 5 mg 04/23/19 01:05 Melatonin PO HS PRN INSOMNIA Methylprednisolone Sodium Succinate 50 mg 04/23/19 12:00 04/23/19 12:16 Solu-Medrol - IVPUSH 50 mg Q6H-IV JOHNY Administration Mupirocin 1 applic 04/22/19 22:00 04/23/19 10:08 Bactroban Ointment (For Decolonization) - NS 10/15/19 21:59 1 applic BID JOHNY Administration Impression 1. JEFF 2. hepatitis b 3. urethral strictures 4. sepsis 5. uti 6. liver cirrhosis - hyperbilirubinema Plan - cont fluids - diagrammer starting to improve - urine sodium is low, likely prerenal disease - cont abx - monitor cultures - discussed with ICU team, possible transfer to tertiary center - monitor output - monitor cvp - cont ICU care - monitor renal function closely -check renal ultrasound
[2019-04-23 17:49] VITALS: TEMP 98.7
[2019-04-23 19:26] VITALS: BP 95/69; PULSE 93
[2019-04-24 05:07] LABS: ALPHA-1-ANTITRYPSIN 188 mg/dL (90-200)
--- NOTE | 2019-04-24 10:11 | DS ---
Physical Exam: SUBJECTIVE: Pt was transferred yesterday to [facility] under care of Dr. Osman. OBJECTIVE: Vital Signs Period Temp Pulse Resp BP Sys/Paez Pulse Ox Last 24 Hr 98.7 F-99.1 F 83-97 14-30 95-119/58-78 PHYSICAL EXAM PE as per yesterday as pt was transferred then. LABS Laboratory Results - last 24 hr 04/23/19 04/23/19 04/23/19 05:40 05:40 05:40 Neutrophils % (Manual) 22.5 L Band Neutrophils % 31.6 Lymphocytes % (Manual) 3.1 L Monocytes % (Manual) 3 L Eosinophils % (Manual) 20.4 H Basophils % (Manual) 0.0 Myelocytes % (Man) 1 Promyelocytes % (Man) 0 Blast Cells % (Manual) 1 H Metamyelocytes 17 H Hypochromia 0 Platelet Estimate Decreased Platelet Comment Present Polychromasia 1+ Poikilocytosis 1+ Anisocytosis 1+ Microcytosis 1+ Macrocytosis 0 Spherocytes 1+ Tear Drop Cells 1+ Mirella Cells 1+ ESR Anticoagulation Therapy Puncture Site ABG pH ABG pCO2 at Pt Temp ABG pO2 at Pt Temp ABG HCO3 ABG O2 Sat (Measured) ABG O2 Content ABG Base Excess Maurice Test O2 Delivery Device Oxygen Flow Rate Vent Mode Vent Rate Mechanical Rate Pressure Support Vent Sodium 136 Potassium 3.8 Chloride 104 Carbon Dioxide 19 L Anion Gap 13 BUN 46.8 H Creatinine 2.3 H Est GFR (CKD-EPI)AfAm 41.10 Est GFR (CKD-EPI)NonAf 35.46 Random Glucose 153 H Lactic Acid Calcium 7.7 L Phosphorus 4.0 Magnesium 1.6 L Total Bilirubin 7.6 H Direct Bilirubin 6.1 H AST 69 H ALT 75 H Alkaline Phosphatase 128 H Troponin I 0.58 H Total Protein 5.7 L Albumin 3.0 L [id number]-[id number] 188 TSH 2.04 Free T4 1.51 H Ur Random Creatinine Ur Random Sodium Ur Random Potassium Ur Random Chloride Opiates Screen Methadone Screen Barbiturate Screen Phencyclidine Screen Ur Amphetamines Screen MDMA (Ecstasy) Screen Benzodiazepines Screen Cocaine Screen U Marijuana (THC) Screen RPR Titer Hep Bs Antibody, Quant <3.1 L Hep B Core IgM Ab Negative Hepatitis Be Antigen Negative 04/23/19 04/23/19 04/23/19 10:00 10:00 10:04 Neutrophils % (Manual) Band Neutrophils % Lymphocytes % (Manual) Monocytes % (Manual) Eosinophils % (Manual) Basophils % (Manual) Myelocytes % (Man) Promyelocytes % (Man) Blast Cells % (Manual) Metamyelocytes Hypochromia Platelet Estimate Platelet Comment Polychromasia Poikilocytosis Anisocytosis Microcytosis Macrocytosis Spherocytes Tear Drop Cells Mirella Cells ESR Anticoagulation Therapy Puncture Site ABG pH ABG pCO2 at Pt Temp ABG pO2 at Pt Temp ABG HCO3 ABG O2 Sat (Measured) ABG O2 Content ABG Base Excess Maurice Test O2 Delivery Device Oxygen Flow Rate Vent Mode Vent Rate Mechanical Rate Pressure Support Vent Sodium Potassium Chloride Carbon Dioxide Anion Gap BUN Creatinine Est GFR (CKD-EPI)AfAm Est GFR (CKD-EPI)NonAf Random Glucose Lactic Acid Calcium Phosphorus Magnesium Total Bilirubin Direct Bilirubin AST ALT Alkaline Phosphatase Troponin I Total Protein Albumin Zaick-3-Xqzvpnkestz TSH Free T4 Ur Random Creatinine 30.0 Ur Random Sodium 11 L Ur Random Potassium 16.0 L Ur Random Chloride < 11 L Opiates Screen Methadone Screen Barbiturate Screen Phencyclidine Screen Ur Amphetamines Screen MDMA (Ecstasy) Screen Benzodiazepines Screen Cocaine Screen U Marijuana (THC) Screen RPR Titer Nonreactive Hep Bs Antibody, Quant Hep B Core IgM Ab Hepatitis Be Antigen 04/23/19 04/23/19 04/23/19 10:04 10:30 12:16 Neutrophils % (Manual) Band Neutrophils % Lymphocytes % (Manual) Monocytes % (Manual) Eosinophils % (Manual) Basophils % (Manual) Myelocytes % (Man) Promyelocytes % (Man) Blast Cells % (Manual) Metamyelocytes Hypochromia Platelet Estimate Platelet Comment Polychromasia Poikilocytosis Anisocytosis Microcytosis Macrocytosis Spherocytes Tear Drop Cells Mirella Cells ESR Anticoagulation Therapy Puncture Site ABG pH ABG pCO2 at Pt Temp ABG pO2 at Pt Temp ABG HCO3 ABG O2 Sat (Measured) ABG O2 Content ABG Base Excess Maurice Test O2 Delivery Device Oxygen Flow Rate Vent Mode Vent Rate Mechanical Rate Pressure Support Vent Sodium Potassium Chloride Carbon Dioxide Anion Gap BUN Creatinine Est GFR (CKD-EPI)AfAm Est GFR (CKD-EPI)NonAf Random Glucose Lactic Acid 4.1 H* Calcium Phosphorus Magnesium Total Bilirubin Direct Bilirubin AST ALT Alkaline Phosphatase Troponin I 1.34 H* Total Protein Albumin Xzixq-3-Orgfboufxia TSH Free T4 Ur Random Creatinine Ur Random Sodium Ur Random Potassium Ur Random Chloride Opiates Screen Negative Methadone Screen Negative Barbiturate Screen Negative Phencyclidine Screen Negative Ur Amphetamines Screen Negative MDMA (Ecstasy) Screen Negative Benzodiazepines Screen Negative Cocaine Screen Negative U Marijuana (THC) Screen Negative RPR Titer Hep Bs Antibody, Quant Hep B Core IgM Ab Hepatitis Be Antigen 04/23/19 04/23/19 04/23/19 12:16 14:30 14:30 Neutrophils % (Manual) Band Neutrophils % Lymphocytes % (Manual) Monocytes % (Manual) Eosinophils % (Manual) Basophils % (Manual) Myelocytes % (Man) Promyelocytes % (Man) Blast Cells % (Manual) Metamyelocytes Hypochromia Platelet Estimate Platelet Comment Polychromasia Poikilocytosis Anisocytosis Microcytosis Macrocytosis Spherocytes Tear Drop Cells Benton Cells ESR 13 H Anticoagulation Therapy No Result Required. Puncture Site No Result Required. ABG pH 7.41 ABG pCO2 at Pt Temp 31.2 L ABG pO2 at Pt Temp 91.6 ABG HCO3 19.1 L ABG O2 Sat (Measured) 96.5 ABG O2 Content 19.4 ABG Base Excess -4.0 L Maurice Test Positive O2 Delivery Device No Result Required. Oxygen Flow Rate No Result Required. Vent Mode No Result Required. Vent Rate No Result Required. Mechanical Rate No Result Required. Pressure Support Vent No Result Required. Sodium Potassium Chloride Carbon Dioxide Anion Gap BUN Creatinine Est GFR (CKD-EPI)AfAm Est GFR (CKD-EPI)NonAf Random Glucose Lactic Acid 3.9 H* Calcium Phosphorus Magnesium Total Bilirubin Direct Bilirubin AST ALT Alkaline Phosphatase Troponin I Total Protein Albumin Ykmej-6-Pwrkpoyehzk TSH Free T4 Ur Random Creatinine Ur Random Sodium Ur Random Potassium Ur Random Chloride Opiates Screen Methadone Screen Barbiturate Screen Phencyclidine Screen Ur Amphetamines Screen MDMA (Ecstasy) Screen Benzodiazepines Screen Cocaine Screen U Marijuana (THC) Screen RPR Titer Hep Bs Antibody, Quant Hep B Core IgM Ab Hepatitis Be Antigen Microbiology 04/22/19 17:00 Blood - Peripheral Venous Blood Culture - Preliminary NO GROWTH OBTAINED AFTER 24 HOURS, INCUBATION TO CONTINUE FOR 4 DAYS. 04/22/19 17:00 Blood - Peripheral Venous Blood Culture - Preliminary NO GROWTH OBTAINED AFTER 24 HOURS, INCUBATION TO CONTINUE FOR 4 DAYS. 04/23/19 12:16 Blood - Peripheral Venous Blood Parasites Smear - Final IMAGING: HOSPITAL COURSE: Date of Admission:04/22/19 Date of Discharge: 04/24/19 Discharge Summary Problems reviewed: Yes Reason For Visit: SEPTIC SHOCK - Instructions Disposition: TRANSFER ACUTE CARE/OTHER HOSP - Home Medications Comprehensive Discharge Medication List: Ambulatory Orders Azithromycin [Zithromax] 500 mg PO ONCE 04/22/19 ATTENDING PHYSICIAN STATEMENT I saw and evaluated the patient. I reviewed the resident's note and discussed the case with the resident. I agree with the resident's findings and plan as documented. SUBJECTIVE: OBJECTIVE: ASSESSMENT AND PLAN:
[2019-04-24] MEDS ORDERED: SODIUM CHLORIDE IVPB SCH (13:00)
[2019-04-24] MEDS ORDERED: CASPOFUNGIN ACETATE IVPB SCH (13:00)
[2019-04-24 19:11] LABS: HEP B CORE AB, TOT Positive (Negative)
== END 2019-04-23 21:04 | disposition short-term general hospital (02) | DRG 871 ==
LOC: JER 16:09 → JERBED 18:14 → JICU 04-23 00:36
PROVIDERS: ADMIT Internal Medicine; ATTEND Internal Medicine
DX: A41.89 Other specified sepsis (principal); R65.21 Severe sepsis with septic shock; K72.00 Acute and subacute hepatic failure without coma; I21.A1 Myocardial infarction type 2; N39.0 Urinary tract infection, site not specified; N17.9 Acute kidney failure, unspecified; B18.1 Chronic viral hepatitis B without delta-agent; J98.11 Atelectasis; I95.9 Hypotension, unspecified; N35.919 Unspecified urethral stricture, male, unspecified site; E80.6 Other disorders of bilirubin metabolism; D69.6 Thrombocytopenia, unspecified; K75.3 Granulomatous hepatitis, not elsewhere classified; R00.0 Tachycardia, unspecified; R94.5 Abnormal results of liver function studies; R33.9 Retention of urine, unspecified; N18.9 Chronic kidney disease, unspecified
CPT/HCPCS: 36415; 36600; 71045-TC-FY; 74176-TC; 76700-TC; 80053; 80307; 81003; 82103; 82248; 82436; 82550; 82553; 82565; 82803; 83516; 83605; 83735; 84100; 84133; 84300; 84439; 84443; 84484; 85025; 85027; 85610; 85651; 85730; 86038; 86317; 86480; 86593; 86704; 86705; 86706; 86707; 86708; 86709; 86790; 87040; 87086; 87186; 87207; 87340; 87350; 87389; 87491; 87522; 87591; 93005; 93010; 93306-TC; 99285-25; G0480; J0131; J7030; Q2036